=== PATIENT | female | born 1960 | race Caucasian/White ===

== ENCOUNTER 2021-05-27 02:09 | Inpatient (IN) | payer MEDICARE, OTHER ==
[~2021-05-27] VITALS: Ht 167.6 cm; Wt 59.4 kg
[2021-05-27] MEDS ORDERED: ALBU18HF2 IH (02:38)
[2021-05-27] MEDS ORDERED: ASPI81TA31 PO (02:38)
[2021-05-27] MEDS ORDERED: HYDR25TA4 PO (02:38)
[2021-05-27] MEDS ORDERED: VALP250S22 PO (02:38)
[2021-05-27] MEDS ORDERED: METF-867 PO (02:38)
[2021-05-27] MEDS ORDERED: PANT40TA2 PO (02:38)
[2021-05-27] MEDS ORDERED: ACET-2154 PO (02:38)
[2021-05-27] MEDS ORDERED: RISP3TAB5 PO (02:38)
[2021-05-27] MEDS ORDERED: NA P133E RC (02:38)
[2021-05-27] MEDS ORDERED: MAGN400O6 PO (02:38)
[2021-05-27] MEDS ORDERED: BISA10SU61 RC (02:38)
[2021-05-27] MEDS ORDERED: DOCU-141 PO (02:38)
[2021-05-27 02:56] LABS: MAGNESIUM 1.5 mg/dL (1.8-2.4)
[2021-05-27 03:03] LABS: ALANINE AMINOTRANSFERASE 24 U/L (14-59); ALKALINE PHOSPHATASE 111 U/L (50-136); ASPARTATE AMINOTRANSFERASE 11 U/L (15-37); BILIRUBIN,TOTAL 0.2 mg/dL (0.2-1.0); CARBON DIOXIDE 30 mmol/L (21-32); CHLORIDE 97 mmol/L (98-107); CREATININE 0.7 mg/dL (0.6-1.3); GLUCOSE 293 mg/dL (74-106); POTASSIUM 3.8 mmol/L (3.5-5.1); UREA NITROGEN, BLOOD 11 mg/dL (7-18)
[2021-05-27 03:10] LABS: BILIRUBIN,DIRECT < 0.1 mg/dL (0.0-0.2)
[2021-05-27 03:11] LABS: *BILIRUBIN,URIN NEGATIVE (NEGATIVE); *BLOOD, URINE NEGATIVE (NEGATIVE); *CLARITY,URINE CLEAR (CLEAR); *COLOR,URINE STRAW (YELLOW); *KETONES,URINE NEGATIVE (NEGATIVE); *UROBILINOGEN,URINE 0.2 E.U./dl (NORMAL); LEUKOCYTE ESTERASE ,URINE TRACE (NEGATIVE); NITRITE, URINE NEGATIVE (NEGATIVE); PH,URINE 6.5 (5.0-8.0); UGLUCOSE 1+ (NEGATIVE)
[2021-05-27 03:17] LABS: BACTERIA,URINE NONE SEEN /HPF (NONE SEEN); RBC,URINE NONE SEEN /HPF (0-3); SQUAMOUS EPITHELIAL CELL,UR FEW /HPF (NONE SEEN)
[2021-05-27 03:21] LABS: MEAN CORPUSCULAR HEMOGLOBIN 30.4 uug (24.7-32.8); PLATELET COUNT (AUTO) 214 K/uL (179-408)
--- NOTE | 2021-05-27 04:04 | NUR ---
Report given to Loraine at [facility] for admission to the unit. Pt is laying in bed, no acute distress noted.
[2021-05-27] MEDS ORDERED: BLOOD SUGAR DIAGNOSTIC 1 EACH STRIP VI ONE (05:30)
[2021-05-27] MEDS ORDERED: MAGNESIUM HYDROXIDE 30 ML LIQUID UDC PO PRN ×2 (05:30→16:30)
[2021-05-27] MEDS ORDERED: MAG HYDROX/AL HYDROX/SIMETH 30 ML LIQUID UDC PO PRN (05:30)
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
[2021-05-27 06:38] VITALS: BP 123/74
[2021-05-27 07:30] VITALS: BP 123/62
[2021-05-27] MEDS ORDERED: MAGNESIUM CHLORIDE 64 MG TABLET.SA PO SCH (09:00)
--- NOTE | 2021-05-27 09:12 | NUR ---
PRISCILLA Initial Discharge Note Pt currently resides at [facility] located at [address] [place] [address] ([phone]). PRISCILLA contacted [facility] and spoke with Tiffanie with admissions department who stated she will check with director of pupil personnel program whether pt will be accepted back at the facility. PRISCILLA spoke with ERIC Sellers at [facility], who stated facility will take pt back if she is referred back. PRISCILLA will continue to work with pt and MD to ensure a safe and proper discharge plan.
--- NOTE | 2021-05-27 09:13 | NUR ---
Firearms Report Plastics Fitter completed and submitted a DOJ firearms report for 5150 danger to others and grave disability certifications. A copy of report has been placed in patient chart.
--- NOTE | 2021-05-27 09:14 | NUR ---
Treatment Plan Patient refused to sign treatment plan due to disorganized thought process.
--- NOTE | 2021-05-27 09:23 | NUR ---
SW Facility Contact PRISCLILA called [facility] [address] [place] [address] ([phone]) and spoke with Tiffanie with admissions department regarding discharge plan. Tiffanie informed she will check with her director of search engine optimization to confirm whether pt will be accepted back. PRISCILLA also spoke with ERIC Sellers, who provided collateral information (see SW assessment). Verito stated the facility will take the pt back if she is referred back to them.
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
[2021-05-27] MEDS ORDERED: MAGNESIUM OXIDE 400 MG TABLET PO ONE (12:00)
[2021-05-27] MEDS: LORAZEPAM 1 MG TABLET PO PRN (12:22)
[2021-05-27] MEDS ORDERED: METF-442 PO (16:27)
[2021-05-27] MEDS ORDERED: BISACODYL 10 MG SUPP.RECT RC PRN (16:30)
[2021-05-27] MEDS ORDERED: ALBUTEROL SULFATE 8 GM HFA.AER.AD IH PRN (16:30)
[2021-05-27] MEDS ORDERED: FLEET ENEMA 133 ML BOTTLE RC PRN (16:30)
[2021-05-27] MEDS ORDERED: ALBUTEROL SULFATE 2.5 MG/3 ML NEBU NEB PRN (16:30)
[2021-05-27] MEDS: risperiDONE 2 MG TABLET PO SCH ×2 (16:38→21:00)
[2021-05-27] MEDS: METFORMIN HCL 500 MG TABLET PO SCH (17:05)
--- NOTE | 2021-05-27 20:30 | NUR ---
RECEIVED PATIENT IN HER ROOM IN BED SLEEPING BUT EASILY AROUSABLE. SHE IS NOTED A/O X 2 SHE IS EASILY IRRITABLE, SARCASTIC, BELLIGERENT, SHE IS HARD RO REDIRECT. SHE IS NOTED WITH POOR INSIGHT AND JUDGMENT TO THE REASON FOR HER ADMISSION TO [facility]. PATIENT WAS GIVEN PO FLUIDS AND SNACKS. SHE REFUSED V/S. SHE IS UNCOOPERATIVE WITH CARE. SHE IS REASSURED FOR HER SAFETY. SAFETY AND FALL PRECAUTION ARE IN PLACE. WILL CONTINUE TO MONITOR.
[2021-05-27] MEDS: levETIRAcetam 500 MG TABLET PO SCH (21:00)
--- NOTE | 2021-05-27 22:00 | NUR ---
PATIENT REFUSED KEPPRA AND RISPERDAL QHS. SHE WAS INFORMED OF THE IMPORTANCE TO COMPLY WITH HER MEDICATION REGIMENT TO IMPROVED HER MENTAL HEALTH; HOWEVER, SHE REFUSED. WILL CONTINUE TO MONITOR,
[2021-05-28] MEDS: PANTOPRAZOLE SODIUM 40 MG TABLET.DR PO SCH (06:48)
[2021-05-28 07:30] VITALS: BP_SYST 117; BP_SYST 121; BP_DIAS 54; BP_DIAS 73
[2021-05-28] MEDS: risperiDONE 2 MG TABLET PO SCH ×4 (08:00→21:00)
[2021-05-28] MEDS: METFORMIN HCL 500 MG TABLET PO SCH ×2 (08:00→12:05)
[2021-05-28] MEDS: DOCUSATE SODIUM 100 MG CAPSULE PO SCH (09:00)
[2021-05-28] MEDS: levETIRAcetam 500 MG TABLET PO SCH ×2 (09:00→21:00)
[2021-05-28] MEDS: HYDROCHLOROTHIAZIDE 25 MG TABLET PO SCH (09:00)
[2021-05-28] MEDS: ASPIRIN 81 MG TAB.CHEW PO SCH ×2 (09:09→12:05)
[2021-05-28] MEDS ORDERED: DEXTROSE 50% 50 ML DISP.SYRIN IV PRN (12:00)
[2021-05-28] MEDS: ACETAMINOPHEN 325 MG TABLET PO PRN (12:05)
[2021-05-28] MEDS: BLOOD SUGAR DIAGNOSTIC 1 EACH STRIP VI SCH ×3 (12:46→21:03)
[2021-05-28] MEDS: INSULIN REGULAR, HUMAN 300 UNIT/3 ML VIAL SQ PRN ×2 (13:38→17:26)
--- NOTE | 2021-05-28 13:39 | NUR ---
Checked patient's bs before lunch to be 357. Insulin order per scale is 15 unit. Attempted to give patient insulin. Pt yelled that it's too much and she was taking lower doses before. 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 I will order my own insulin!, you don't know anything about medicine!" Pt was explained the sliding scale and importance of taking her insulin. Pt continues to refuse.
[2021-05-28 20:00] VITALS: BP 131/72
--- NOTE | 2021-05-28 21:00 | NUR ---
RECEIVED PATIENT IN HER ROOM SITTING IN A WHEELCHAIR. SHE WAS NOTED A/O X 2. SHE IS NOTED EASILY IRRITABLE, SHE IS HARD TO REDIRECT. MOOD IS IRRITABLE AFFECT IS FLAT. SHE IS LABILE. PATIENT WAS COMPLIANT WITH ACCU CHECK AND INSULIN SLIDING SCALE. SHE WAS 285 AND SHE WAS GIVEN 6 UNIT OF REGULAR INSULIN. SHE CONTINUE REFUSING KEPPRA AND RISPERDAL OHS. WILL CONTINUE TO MONITOR.
[2021-05-28] MEDS: INSULIN REGULAR, HUMAN 300 UNITS/3 ML VIAL SQ PRN (21:02)
--- NOTE | 2021-05-28 22:15 | NUR ---
PATIENT REFUSED KEPPRA AND RISPERDAL QHS. MULTIPLE ATTEMPTS WERE MADE YET INEFFECTIVE, PATIENT IS LABILE, SHE GETS ANGRY EASILY. SHE WAS INFORMED OF THE IMPORTANCE TO COMPLY WITH MEDICATION REGIMENT TO IMPROVED HER CONDITION BUT WERE INEFFECTIVE. WILL CONTINUE TO MONITOR.
[2021-05-29] MEDS: PANTOPRAZOLE SODIUM 40 MG TABLET.DR PO SCH (06:51)
[2021-05-29] MEDS: BLOOD SUGAR DIAGNOSTIC 1 EACH STRIP VI SCH ×4 (06:51→20:44)
--- NOTE | 2021-05-29 07:01 | NUR ---
patient slept for approx 9hrs through the night. she was able to shower. she continue labile, easily irritable. she laughs inappropriately and she is hard to redirect. she refused pantoprazole. will continue to monitor.
[2021-05-29] MEDS: risperiDONE 2 MG TABLET PO SCH ×3 (08:00→20:38)
[2021-05-29] MEDS: METFORMIN HCL 500 MG TABLET PO SCH ×2 (08:00→18:03)
[2021-05-29] MEDS: DOCUSATE SODIUM 100 MG CAPSULE PO SCH (09:00)
[2021-05-29] MEDS: levETIRAcetam 500 MG TABLET PO SCH ×2 (09:00→20:37)
[2021-05-29] MEDS: HYDROCHLOROTHIAZIDE 25 MG TABLET PO SCH (09:00)
[2021-05-29] MEDS: INSULIN REGULAR, HUMAN 300 UNIT/3 ML VIAL SQ PRN ×2 (09:24→17:52)
--- NOTE | 2021-05-29 09:30 | NUR ---
Gps/Correctional Captain- Roaming around with her wheel chair . Claimed she does not take any oral medications from the staff . Speech incoherent , claimed she is an Impress and needed respect. 

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
[2021-05-29] MEDS ORDERED: OLANZAPINE 10 MG VIAL IM ONE (09:45)
[2021-05-29] MEDS ORDERED: LORAZEPAM 2 MG/1 ML VIAL IV ONE (11:00)
--- NOTE | 2021-05-29 14:00 | NUR ---
Gps/Tubing Supervisor. Request for Reise sent to Court. Response received from Court, no availability today, and closed tomorrow. Can request schedule for or , called to Dr Jaramillo and was informed
[2021-05-29 16:00] VITALS: BP 131/64
--- NOTE | 2021-05-29 18:06 | NUR ---
Gps/Panama Hat Hydraulic Press Operator- Calmer this pm, had been following simple directions, remains in her wheel chair, roaming around.Requested Glucerna with meals as requested
[2021-05-29 20:10] VITALS: BP 126/56
[2021-05-29] MEDS: INSULIN REGULAR, HUMAN 300 UNITS/3 ML VIAL SQ PRN (20:47)
[2021-05-30] MEDS: LORAZEPAM 1 MG TABLET PO PRN (03:40)
[2021-05-30] MEDS: PANTOPRAZOLE SODIUM 40 MG TABLET.DR PO SCH (06:20)
[2021-05-30] MEDS: BLOOD SUGAR DIAGNOSTIC 1 EACH STRIP VI SCH ×4 (06:27→22:16)
--- NOTE | 2021-05-30 07:11 | NUR ---
Slept 4.0 hours only, out of bed on her wheelchair, holdings some papers to draw. No agitation noted, cooperative with her medications.
[2021-05-30 07:30] VITALS: BP 144/85
[2021-05-30] MEDS: DOCUSATE SODIUM 100 MG CAPSULE PO SCH (08:30)
[2021-05-30] MEDS: ASPIRIN 81 MG TAB.CHEW PO SCH (08:30)
[2021-05-30] MEDS: risperiDONE 2 MG TABLET PO SCH ×3 (08:30→21:59)
[2021-05-30] MEDS: METFORMIN HCL 500 MG TABLET PO SCH ×2 (08:30→16:43)
[2021-05-30] MEDS: HYDROCHLOROTHIAZIDE 25 MG TABLET PO SCH (08:31)
[2021-05-30] MEDS: INSULIN REGULAR, HUMAN 300 UNIT/3 ML VIAL SQ PRN ×3 (08:42→17:09)
[2021-05-30] MEDS: levETIRAcetam 500 MG TABLET PO SCH ×2 (08:43→21:59)
[2021-05-30] MEDS: glipiZIDE 10 MG TABLET PO SCH (16:41)
[2021-05-30 17:20] VITALS: BP 126/62
--- NOTE | 2021-05-30 17:55 | NUR ---
Gps/Paraeducator- Marietta self around the unit, continue to make simple needs known to the staff, had been redirectable. No Yelling spells noted. safety reviewed ,emphasized Had been compliant with routine am meds. Requesting to take multivitamin , informed will notify her MD. in the morning on her next visit., she thinks she is loosing some weights.
[2021-05-30 20:03] VITALS: BP 136/66
--- NOTE | 2021-05-31 05:26 | NUR ---
Received to care, lying in bed. Able to transfer self from bed, to wheel chair, and back. 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 Demanded vitamin supplements, and wanted staff to call the doctor late at night to request this. She was told that the morning nurse would be told of her request, and ask the doctor, when making morning rounds. She eventually went to sleep, and remains asleep. No distress noted.
[2021-05-31] MEDS: PANTOPRAZOLE SODIUM 40 MG TABLET.DR PO SCH (06:58)
[2021-05-31] MEDS: BLOOD SUGAR DIAGNOSTIC 1 EACH STRIP VI SCH ×4 (06:59→21:59)
[2021-05-31 07:51] VITALS: BP 128/64
[2021-05-31] MEDS: risperiDONE 2 MG TABLET PO SCH ×3 (08:00→21:00)
[2021-05-31] MEDS: glipiZIDE 10 MG TABLET PO SCH ×2 (08:51→16:30)
[2021-05-31] MEDS: DOCUSATE SODIUM 100 MG CAPSULE PO SCH (08:51)
[2021-05-31] MEDS: ASPIRIN 81 MG TAB.CHEW PO SCH (08:51)
[2021-05-31] MEDS: HYDROCHLOROTHIAZIDE 25 MG TABLET PO SCH (08:52)
[2021-05-31] MEDS: METFORMIN HCL 500 MG TABLET PO SCH ×2 (08:52→17:11)
[2021-05-31] MEDS: LORAZEPAM 1 MG TABLET PO PRN ×2 (08:52→16:30)
[2021-05-31] MEDS: levETIRAcetam 500 MG TABLET PO SCH ×2 (08:54→21:00)
[2021-05-31] MEDS: INSULIN REGULAR, HUMAN 300 UNIT/3 ML VIAL SQ PRN ×2 (08:54→16:32)
--- NOTE | 2021-05-31 14:53 | NUR ---
GPS: Nursing Notes: Non-Compliance With Medications: Patient is awake and responding to her name, labile, unpredictable behavior, loud and pressured speech, resistant with nursing care, refusing her Risperdal medication and Keppra medication, stated "I am a doctor... I do not need them..", gets easily irritable when redirected, explosive behavior, verbal abusive toward staff, episodes of shouting to her roommate, poor anger management, unable to formulate a viable plan for self care, continue with treatment plan.
[2021-05-31 16:22] VITALS: BP 157/86
[2021-05-31 20:00] VITALS: BP 117/50
--- NOTE | 2021-06-01 05:23 | NUR ---
Received lying in bed, answering questions, selectively. 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 She slept well throughout the night, and remains asleep. No distress, noted.
[2021-06-01] MEDS: PANTOPRAZOLE SODIUM 40 MG TABLET.DR PO SCH (07:10)
[2021-06-01] MEDS: BLOOD SUGAR DIAGNOSTIC 1 EACH STRIP VI SCH ×4 (07:10→20:17)
[2021-06-01 07:41] VITALS: BP 128/69
[2021-06-01] MEDS: risperiDONE 2 MG TABLET PO SCH ×3 (08:00→20:17)
[2021-06-01] MEDS: LORAZEPAM 1 MG TABLET PO PRN (08:49)
[2021-06-01] MEDS: glipiZIDE 10 MG TABLET PO SCH ×2 (08:49→16:43)
[2021-06-01] MEDS: HYDROCHLOROTHIAZIDE 25 MG TABLET PO SCH (08:49)
[2021-06-01] MEDS: ASPIRIN 81 MG TAB.CHEW PO SCH (08:49)
[2021-06-01] MEDS: METFORMIN HCL 500 MG TABLET PO SCH ×2 (08:49→17:05)
[2021-06-01] MEDS: DOCUSATE SODIUM 100 MG CAPSULE PO SCH (08:49)
[2021-06-01] MEDS: levETIRAcetam 500 MG TABLET PO SCH ×2 (08:50→20:17)
--- NOTE | 2021-06-01 12:10 | NUR ---
GPS: Nursing Notes: Non-Compliance With Medications: Patient is awake and responding to her name, poor impulse control, impaired judgment, refusing her Risperdal and Keppra, stating "I am a doctor.... I know better..", explained the pros and cons of her medications, but continue to refuse her medications, written material regarding Risperdal and Keppra given to the patient, gets easily irritable when redirected, loud and pressured speech, poor anger management, unkempt appearance, unable to formulate a viable plan for self care, disorganized, continue to monitor for safety, continue with treatment plan.
[2021-06-01 15:56] VITALS: BP 148/77
[2021-06-01] MEDS: INSULIN REGULAR, HUMAN 300 UNIT/3 ML VIAL SQ PRN (16:48)
[2021-06-01] MEDS: TEMAZEPAM 7.5 MG CAPSULE PO PRN (20:21)
[2021-06-01 20:55] VITALS: BP 146/74
[2021-06-02] MEDS: glipiZIDE 10 MG TABLET PO SCH ×2 (06:39→16:52)
[2021-06-02] MEDS: PANTOPRAZOLE SODIUM 40 MG TABLET.DR PO SCH (06:39)
[2021-06-02] MEDS: BLOOD SUGAR DIAGNOSTIC 1 EACH STRIP VI SCH ×4 (06:40→20:37)
[2021-06-02 07:39] VITALS: BP 137/84
[2021-06-02] MEDS: risperiDONE 2 MG TABLET PO SCH ×3 (08:00→20:37)
[2021-06-02] MEDS: METFORMIN HCL 500 MG TABLET PO SCH ×2 (08:30→17:04)
[2021-06-02] MEDS: LORAZEPAM 1 MG TABLET PO PRN (08:31)
[2021-06-02] MEDS: HYDROCHLOROTHIAZIDE 25 MG TABLET PO SCH (08:31)
[2021-06-02] MEDS: ASPIRIN 81 MG TAB.CHEW PO SCH (08:31)
[2021-06-02] MEDS: DOCUSATE SODIUM 100 MG CAPSULE PO SCH (08:33)
[2021-06-02] MEDS: levETIRAcetam 500 MG TABLET PO SCH ×2 (08:33→20:37)
--- NOTE | 2021-06-02 09:30 | NUR ---
GPS: Nursing Notes: Thought Disorder: Patient is awake and responding to her name, poor anger management, poor impulse control, gets easily irritable when redirected, refusing her medications, impaired judgment, demanding for international phone calls, "I want to call [employer] [place].. Yung is my ..", redirected and reoriented to reality during shift, but continue to refuse her medications, continue on trying to call [employer] [place], unable to formulate a viable plan for self care, unkempt appearance, continue with treatment plan.
[2021-06-02 16:11] VITALS: BP 140/71
[2021-06-02] MEDS: INSULIN REGULAR, HUMAN 300 UNIT/3 ML VIAL SQ PRN (16:53)
[2021-06-02 20:11] VITALS: BP 132/74
[2021-06-02] MEDS: ACETAMINOPHEN 325 MG TABLET PO PRN (20:31)
[2021-06-02] MEDS: INSULIN REGULAR, HUMAN 300 UNITS/3 ML VIAL SQ PRN (20:38)
[2021-06-03] MEDS: PANTOPRAZOLE SODIUM 40 MG TABLET.DR PO SCH (06:27)
[2021-06-03] MEDS: BLOOD SUGAR DIAGNOSTIC 1 EACH STRIP VI SCH ×4 (06:39→21:00)
--- NOTE | 2021-06-03 06:57 | NUR ---
remain uncooperative. screaming at room mate. refused insulin at hs. compliant with meds this morning. slept 6.30 hrs through the night.
[2021-06-03 07:30] VITALS: BP_SYST 117; BP_SYST 17; BP_DIAS 78
[2021-06-03] MEDS: glipiZIDE 10 MG TABLET PO SCH ×2 (07:30→16:30)
[2021-06-03] MEDS: risperiDONE 2 MG TABLET PO SCH ×3 (08:00→21:00)
[2021-06-03] MEDS: levETIRAcetam 500 MG TABLET PO SCH ×2 (09:00→21:00)
[2021-06-03] MEDS: DOCUSATE SODIUM 100 MG CAPSULE PO SCH (09:00)
[2021-06-03] MEDS: METFORMIN HCL 500 MG TABLET PO SCH ×2 (09:38→17:05)
[2021-06-03] MEDS: LORAZEPAM 1 MG TABLET PO PRN (09:38)
[2021-06-03] MEDS: ASPIRIN 81 MG TAB.CHEW PO SCH (09:38)
[2021-06-03] MEDS: HYDROCHLOROTHIAZIDE 25 MG TABLET PO SCH (09:39)
[2021-06-03] MEDS: INSULIN REGULAR, HUMAN 300 UNIT/3 ML VIAL SQ PRN (09:41)
--- NOTE | 2021-06-03 11:48 | NUR ---
COURT NOTIFICATION: Shelly bella faxed to court. This hand sign writer called court to confirm they received the fax. Confirmed by Yasmeen at the court.
[2021-06-03 16:00] VITALS: BP 124/72
--- NOTE | 2021-06-03 17:14 | NUR ---
PROBABLE CAUSE HEARING: Patient's probable cause hearing was held today. 5250 hold upheld for DTO/GD.
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
[2021-06-03 20:10] VITALS: BP 116/70
[2021-06-04] MEDS: PANTOPRAZOLE SODIUM 40 MG TABLET.DR PO SCH (07:00)
[2021-06-04 07:30] VITALS: BP 112/65
[2021-06-04] MEDS: glipiZIDE 10 MG TABLET PO SCH ×2 (07:30→16:49)
[2021-06-04] MEDS: BLOOD SUGAR DIAGNOSTIC 1 EACH STRIP VI SCH ×5 (07:30→20:52)
[2021-06-04] MEDS: METFORMIN HCL 500 MG TABLET PO SCH ×2 (08:00→16:50)
[2021-06-04] MEDS: risperiDONE 2 MG TABLET PO SCH ×4 (08:00→21:00)
[2021-06-04] MEDS: HYDROCHLOROTHIAZIDE 25 MG TABLET PO SCH (08:41)
[2021-06-04] MEDS: levETIRAcetam 500 MG TABLET PO SCH ×3 (08:41→21:00)
[2021-06-04] MEDS: ASPIRIN 81 MG TAB.CHEW PO SCH (08:42)
[2021-06-04] MEDS: DOCUSATE SODIUM 100 MG CAPSULE PO SCH (08:42)
--- NOTE | 2021-06-04 10:27 | NUR ---
GPS; PT SEEN AND RECEIVED ON WHEELCHAIR, ATE BREAKFAST, NON-COMPLIANT WITH MEDICATIONS THIS MORNING. PT REFUSED TAKING IT AFTER EXPLAINING RISK AND BENIFITS. PT WITH MIKEL HEARING TODAY AND PER PT ADVOCATE, PT IS NOT GOING TO ATTEND. PT EASILY GETS AGITATED.
[2021-06-04] MEDS: INSULIN REGULAR, HUMAN 300 UNIT/3 ML VIAL SQ PRN ×2 (12:11→16:56)
[2021-06-04] MEDS: OLANZAPINE 10 MG VIAL IM PRN ×2 (12:17→21:16)
--- NOTE | 2021-06-04 12:33 | NUR ---
GPS: PT ADMINISTERED ZYPREXA IM AFTER PT REFUSED TAKING THE RISPERDAL. EXPLAINED TO PT AND WAS TOLERATED WELL. ADMINISTERED ON RIGHT DELTOID. PT AGITATED STATING " YOU ARE GIVING ME POISON AND I AM ALLERGIC TO RISPERDAL AND ZYPREXA. I GET A BAD REACTION TO IT". ABLE TO GIVE HUMULIN R AND ACCUCHECK DONE BEFORE GIVING ZYPREXA.
[2021-06-04 16:00] VITALS: BP 127/74
[2021-06-04] MEDS: ACETAMINOPHEN 325 MG TABLET PO PRN ×2 (16:49→22:16)
[2021-06-04] MEDS: LORAZEPAM 1 MG TABLET PO PRN (17:05)
[2021-06-04 20:15] VITALS: BP 116/66
[2021-06-05] MEDS: BLOOD SUGAR DIAGNOSTIC 1 EACH STRIP VI SCH ×4 (06:46→21:00)
[2021-06-05] MEDS: PANTOPRAZOLE SODIUM 40 MG TABLET.DR PO SCH (06:46)
[2021-06-05 07:30] VITALS: BP 120/65
[2021-06-05] MEDS: glipiZIDE 10 MG TABLET PO SCH ×2 (07:30→18:28)
[2021-06-05] MEDS: ASPIRIN 81 MG TAB.CHEW PO SCH (08:30)
[2021-06-05] MEDS: METFORMIN HCL 500 MG TABLET PO SCH ×2 (08:30→18:26)
[2021-06-05] MEDS: levETIRAcetam 500 MG TABLET PO SCH ×2 (08:31→21:00)
[2021-06-05] MEDS: DOCUSATE SODIUM 100 MG CAPSULE PO SCH (08:31)
[2021-06-05] MEDS: HYDROCHLOROTHIAZIDE 25 MG TABLET PO SCH (08:32)
[2021-06-05] MEDS ORDERED: PALIPERIDONE PALMITATE 234 MG/1.5 ML SYRINGE IM ONE (09:00)
[2021-06-05] MEDS ORDERED: MISCELLANEOUS MED XX PRN (09:00)
--- NOTE | 2021-06-05 11:15 | NUR ---
GPS: PT ALERT AND VERBALLY RESPONSIVE. EASILY GETS AGITATED. SCREAMS ALL OVER THE PLACE. ADMINISTERED INVEGA SUSTENA 1.5ML IM ON RIGHT DELTOID. TOLERATED WELL. PT SCREAMING AND COMBATIVE AFTER ADMINISTRATION. TOLERATED WELL. PT LIKES WO WHEEL ALONG THE HALLWAY.
[2021-06-05] MEDS: INSULIN REGULAR, HUMAN 300 UNIT/3 ML VIAL SQ PRN (14:19)
[2021-06-05 16:00] VITALS: BP 117/67
[2021-06-05 20:00] VITALS: BP 136/61
[2021-06-06] MEDS: TEMAZEPAM 7.5 MG CAPSULE PO PRN (00:33)
[2021-06-06] MEDS: LORAZEPAM 1 MG TABLET PO PRN ×2 (00:33→20:42)
[2021-06-06] MEDS: PANTOPRAZOLE SODIUM 40 MG TABLET.DR PO SCH (06:29)
[2021-06-06 07:30] VITALS: BP 127/69
[2021-06-06] MEDS: BLOOD SUGAR DIAGNOSTIC 1 EACH STRIP VI SCH ×4 (07:30→19:58)
[2021-06-06] MEDS ORDERED: TEMAZEPAM 7.5 MG CAPSULE PO PRN (08:00)
[2021-06-06] MEDS ORDERED: TEMAZEPAM 15 MG CAPSULE PO PRN (08:15)
--- NOTE | 2021-06-06 08:47 | NUR ---
GPS: RECEIVED TELEPHONE ORDER FROM DR TRAVIS GEORGE 0.5MG PO QHS FOR PT. PT MADE AWARE.
[2021-06-06] MEDS: DOCUSATE SODIUM 100 MG CAPSULE PO SCH (08:54)
[2021-06-06] MEDS: levETIRAcetam 500 MG TABLET PO SCH ×2 (08:54→20:41)
[2021-06-06] MEDS: ASPIRIN 81 MG TAB.CHEW PO SCH (08:54)
[2021-06-06] MEDS: glipiZIDE 10 MG TABLET PO SCH ×2 (08:55→17:23)
[2021-06-06] MEDS: HYDROCHLOROTHIAZIDE 25 MG TABLET PO SCH (08:56)
[2021-06-06] MEDS: METFORMIN HCL 500 MG TABLET PO SCH ×2 (09:29→17:23)
[2021-06-06 09:30] LABS: HEMATOCRIT 43.8 % (31.2-41.9); MEAN CORPUSCULAR HEMOGLOBIN 30.2 uug (24.7-32.8); MEAN CORPUSCULAR VOLUME 88.9 fL (75.5-95.3); PLATELET COUNT (AUTO) 265 K/uL (179-408)
[2021-06-06] MEDS: INSULIN REGULAR, HUMAN 300 UNIT/3 ML VIAL SQ PRN ×3 (09:32→17:25)
[2021-06-06 09:48] LABS: CREATININE 0.6 mg/dL (0.6-1.3); MAGNESIUM 1.6 mg/dL (1.8-2.4); PHOSPHOROUS 4.4 mg/dL (2.5-4.9); POTASSIUM 4.1 mmol/L (3.5-5.1)
--- NOTE | 2021-06-06 10:18 | NUR ---
GPS: PT RECEIVED TODAY ON BED, DENIES ANY PAIN OR DISCOMFORT. PT SEEN WHEELING ALONG THE HALLWAY. NO AGITATION NOTED AT THIS TIME. PT COMPLIANT WITH MEDS AND ACCUCHECK DONE AND TOLERATED WELL BY PT.
[2021-06-06 17:05] VITALS: BP 122/75
--- NOTE | 2021-06-06 18:00 | NUR ---
GPS: PT COOPERATIVE WITH CARE AND COMPLIANT WITH MEDS AT THIS TIME. GIVEN 3 UNITS HUMULIN R AFTER ACCUCHECK OF 199MG/DL. PT TOLERATED WELL THE SQ INJ. DENIES ANY PAIN OR DISCOMFORT. PT ABLE TO UNDERSTAND AND REDIRECTABLE.
[2021-06-06] MEDS: INSULIN REGULAR, HUMAN 300 UNITS/3 ML VIAL SQ PRN (19:59)
[2021-06-06 20:00] VITALS: BP 116/67
[2021-06-06] MEDS: risperiDONE 0.5 MG TABLET PO SCH (20:41)
--- NOTE | 2021-06-07 03:41 | NUR ---
Received the patient in bed with the covers over her head. Resistant to having her blood sugar checked , and refused Insulin at that time. Then the patient proceeded to yell and was verbally abusive. This patient is delusional, paranoid and has poor impulse control. This technical proposal writer had difficulty having any meaningful conversation or reorienting the patient. Staff is monitoring the patient for safety and further behavior escalation. On and off with medication compliance.
[2021-06-07] MEDS: glipiZIDE 10 MG TABLET PO SCH ×2 (06:00→16:03)
[2021-06-07] MEDS: PANTOPRAZOLE SODIUM 40 MG TABLET.DR PO SCH (06:00)
[2021-06-07] MEDS: BLOOD SUGAR DIAGNOSTIC 1 EACH STRIP VI SCH ×4 (06:08→20:28)
[2021-06-07 07:30] VITALS: BP 121/63
[2021-06-07] MEDS: INSULIN REGULAR, HUMAN 300 UNIT/3 ML VIAL SQ PRN ×2 (07:50→16:43)
[2021-06-07] MEDS: METFORMIN HCL 500 MG TABLET PO SCH ×2 (08:49→18:13)
[2021-06-07] MEDS: DOCUSATE SODIUM 100 MG CAPSULE PO SCH (08:53)
[2021-06-07] MEDS: ASPIRIN 81 MG TAB.CHEW PO SCH (08:53)
[2021-06-07] MEDS: levETIRAcetam 500 MG TABLET PO SCH ×2 (08:54→20:28)
[2021-06-07] MEDS: HYDROCHLOROTHIAZIDE 25 MG TABLET PO SCH (08:54)
[2021-06-07 16:00] VITALS: BP 125/68
[2021-06-07 20:00] VITALS: BP 121/54
[2021-06-07] MEDS: risperiDONE 0.5 MG TABLET PO SCH (20:28)
[2021-06-07] MEDS: INSULIN REGULAR, HUMAN 300 UNITS/3 ML VIAL SQ PRN (20:52)
[2021-06-08] MEDS: glipiZIDE 10 MG TABLET PO SCH ×2 (06:28→16:32)
[2021-06-08] MEDS: BLOOD SUGAR DIAGNOSTIC 1 EACH STRIP VI SCH ×4 (06:28→20:45)
[2021-06-08] MEDS: PANTOPRAZOLE SODIUM 40 MG TABLET.DR PO SCH (06:29)
[2021-06-08 07:47] VITALS: BP 101/63
[2021-06-08] MEDS: DOCUSATE SODIUM 100 MG CAPSULE PO SCH (08:41)
[2021-06-08] MEDS: METFORMIN HCL 500 MG TABLET PO SCH ×2 (08:41→17:09)
[2021-06-08] MEDS: ASPIRIN 81 MG TAB.CHEW PO SCH (08:41)
[2021-06-08] MEDS: levETIRAcetam 500 MG TABLET PO SCH ×2 (08:41→20:52)
[2021-06-08] MEDS: HYDROCHLOROTHIAZIDE 25 MG TABLET PO SCH (08:42)
[2021-06-08] MEDS: INSULIN REGULAR, HUMAN 300 UNIT/3 ML VIAL SQ PRN ×2 (08:54→12:30)
[2021-06-08 15:51] VITALS: BP 130/67
[2021-06-08 20:16] VITALS: BP 124/62
[2021-06-08] MEDS: INSULIN REGULAR, HUMAN 300 UNITS/3 ML VIAL SQ PRN (20:51)
[2021-06-08] MEDS: risperiDONE 0.5 MG TABLET PO SCH ×2 (20:52→22:14)
[2021-06-09] MEDS: glipiZIDE 10 MG TABLET PO SCH ×2 (06:36→17:31)
[2021-06-09] MEDS: PANTOPRAZOLE SODIUM 40 MG TABLET.DR PO SCH (06:36)
[2021-06-09] MEDS: BLOOD SUGAR DIAGNOSTIC 1 EACH STRIP VI SCH ×4 (06:37→20:08)
[2021-06-09 07:46] VITALS: BP 116/65
[2021-06-09] MEDS: HYDROCHLOROTHIAZIDE 25 MG TABLET PO SCH (08:50)
[2021-06-09] MEDS: LORAZEPAM 1 MG TABLET PO PRN (08:50)
[2021-06-09] MEDS: METFORMIN HCL 500 MG TABLET PO SCH ×2 (08:50→17:31)
[2021-06-09] MEDS: ASPIRIN 81 MG TAB.CHEW PO SCH (08:50)
[2021-06-09] MEDS: DOCUSATE SODIUM 100 MG CAPSULE PO SCH (08:52)
[2021-06-09] MEDS: levETIRAcetam 500 MG TABLET PO SCH ×2 (08:52→20:08)
[2021-06-09] MEDS: INSULIN REGULAR, HUMAN 300 UNIT/3 ML VIAL SQ PRN (08:54)
[2021-06-09] MEDS: risperiDONE 0.5 MG TABLET PO SCH ×2 (12:47→17:00)
[2021-06-09 15:46] VITALS: BP 108/72
[2021-06-09 20:00] VITALS: BP 112/66
[2021-06-09] MEDS: OLANZAPINE 10 MG VIAL IM PRN (20:07)
[2021-06-09] MEDS: risperiDONE 1 MG TABLET PO SCH (20:08)
--- NOTE | 2021-06-10 06:14 | NUR ---
GPS:Patient has poor anger management, impaired judgment, poor impulse control, overly disruptive by shouting, verbal abusive toward staff, threatening staff, refusing her medications, stated "I am a doctor. I know better. grandiose, I am a berry. unkempt appearance, refused Risperdal po and Zyprexa 5 mg im given. slept 5 hrs through the night. continue with treatment plan.
[2021-06-10] MEDS: BLOOD SUGAR DIAGNOSTIC 1 EACH STRIP VI SCH ×4 (06:38→21:00)
[2021-06-10] MEDS: PANTOPRAZOLE SODIUM 40 MG TABLET.DR PO SCH (06:39)
[2021-06-10 08:30] VITALS: BP 117/79
[2021-06-10] MEDS: levETIRAcetam 500 MG TABLET PO SCH ×2 (09:00→21:00)
[2021-06-10] MEDS: risperiDONE 1 MG TABLET PO SCH ×2 (09:00→21:00)
[2021-06-10] MEDS: DOCUSATE SODIUM 100 MG CAPSULE PO SCH (09:00)
[2021-06-10] MEDS: HYDROCHLOROTHIAZIDE 25 MG TABLET PO SCH (09:00)
[2021-06-10] MEDS: ASPIRIN 81 MG TAB.CHEW PO SCH (09:01)
[2021-06-10] MEDS: METFORMIN HCL 500 MG TABLET PO SCH ×2 (09:01→17:12)
[2021-06-10] MEDS: glipiZIDE 10 MG TABLET PO SCH ×2 (09:02→16:38)
[2021-06-10] MEDS: INSULIN REGULAR, HUMAN 300 UNIT/3 ML VIAL SQ PRN (09:06)
[2021-06-10] MEDS: OLANZAPINE 10 MG VIAL IM PRN ×2 (09:33→20:47)
[2021-06-10 20:03] VITALS: BP 112/74
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
[2021-06-11] MEDS: PANTOPRAZOLE SODIUM 40 MG TABLET.DR PO SCH (06:03)
[2021-06-11] MEDS: glipiZIDE 10 MG TABLET PO SCH ×2 (06:04→17:08)
[2021-06-11] MEDS: BLOOD SUGAR DIAGNOSTIC 1 EACH STRIP VI SCH ×4 (06:14→21:00)
[2021-06-11 07:30] VITALS: BP 131/70
[2021-06-11] MEDS: ASPIRIN 81 MG TAB.CHEW PO SCH (09:00)
[2021-06-11] MEDS: DOCUSATE SODIUM 100 MG CAPSULE PO SCH (09:00)
[2021-06-11] MEDS: HYDROCHLOROTHIAZIDE 25 MG TABLET PO SCH (09:00)
[2021-06-11] MEDS: risperiDONE 1 MG TABLET PO SCH ×3 (09:00→21:00)
[2021-06-11] MEDS: levETIRAcetam 500 MG TABLET PO SCH ×3 (09:00→21:00)
[2021-06-11] MEDS: METFORMIN HCL 500 MG TABLET PO SCH ×2 (09:19→17:07)
[2021-06-11] MEDS: INSULIN REGULAR, HUMAN 300 UNIT/3 ML VIAL SQ PRN ×2 (09:26→13:15)
[2021-06-11] MEDS: OLANZAPINE 10 MG VIAL IM PRN ×2 (09:39→22:02)
[2021-06-11 16:00] VITALS: BP 130/65
[2021-06-11] MEDS: CEphaleXIN 500 MG CAPSULE PO SCH (17:00)
--- NOTE | 2021-06-11 18:26 | NUR ---
GPS: PT REFUSED RISPENDONE THIS AM, ADMINISTERED ZYPREXA 5MG IM ON LEFT DELTOID, TOLERATED WELL BY PT. PT ALSO REFUSED KEFLEX ATB AT 1700. PER PT, HE DOES NOT KNOW SHE HAVE INFECTION AND THERE WAS NO TEST DONE SO WHY TAKE THE ATB MEDICATION.
--- NOTE | 2021-06-11 21:13 | NUR ---
Pharmacy Note: Patient's reise order states in the indication note to give zyprexa 5mg if patient refuses Risperdal 2 mg Q12 hours. Please be advised the order is Risperdal 1 mg Q12 hours. Patient refused HS medication, through the pills at staff and water in staff's face and made the following statement, "Now clean it up, mop the floor, and leave me alone you...". IM to be administered as ordered, will continue to monitor for adverse reactions, psychiatrist aware of the order discrepancy, contacted her to verify @ 3136 hours.
[2021-06-12 07:30] VITALS: BP 119/61
[2021-06-12] MEDS: BLOOD SUGAR DIAGNOSTIC 1 EACH STRIP VI SCH ×4 (07:30→21:00)
[2021-06-12] MEDS: DOCUSATE SODIUM 100 MG CAPSULE PO SCH (08:51)
[2021-06-12] MEDS: METFORMIN HCL 500 MG TABLET PO SCH ×2 (08:51→18:00)
[2021-06-12] MEDS: CEphaleXIN 500 MG CAPSULE PO SCH ×2 (08:52→17:00)
[2021-06-12] MEDS: levETIRAcetam 500 MG TABLET PO SCH ×2 (08:52→21:00)
[2021-06-12] MEDS: ASPIRIN 81 MG TAB.CHEW PO SCH (08:53)
[2021-06-12] MEDS: HYDROCHLOROTHIAZIDE 25 MG TABLET PO SCH (08:54)
[2021-06-12] MEDS: glipiZIDE 10 MG TABLET PO SCH ×2 (09:11→16:30)
[2021-06-12] MEDS: PANTOPRAZOLE SODIUM 40 MG TABLET.DR PO SCH (09:11)
[2021-06-12] MEDS: INSULIN REGULAR, HUMAN 300 UNIT/3 ML VIAL SQ PRN (09:15)
--- NOTE | 2021-06-12 09:25 | NUR ---
Pt refused EKG. LAUNDRY MARKER SUPERVISOR Amanda and MANAGEMENT SME Jose at bedside to witness.
--- NOTE | 2021-06-12 11:00 | NUR ---
GPS: RECEIVED PT CALM AND ON WHEELCHAIR WHEELING AROUND THE HALLWAY. DENIES ANY PAIN OR DISCOMFORT. PT ACCEPTED THE EKG TEST AFTER EXPLAINING THE PROCEDURFE THAT IT'S NOT AN INVASIVE ONE. ORDERED EKG TEST BUT PT BECAME AGITATED AND REFUSED IT. INFORMED DR ROBLES. AN ORDER FOR INVEGA SUSTENA 156MG 1 ML IM WILL BE GIVEN. PT WILL BE DISCHARGE TOMORROW.
[2021-06-12 12:10] LABS: *BILIRUBIN,URIN NEGATIVE (NEGATIVE); *CLARITY,URINE CLEAR (CLEAR); *COLOR,URINE YELLOW (YELLOW); *KETONES,URINE NEGATIVE (NEGATIVE); *UROBILINOGEN,URINE 0.2 E.U./dl (NORMAL); LEUKOCYTE ESTERASE ,URINE NEGATIVE (NEGATIVE); NITRITE, URINE NEGATIVE (NEGATIVE); UGLUCOSE 3+ (NEGATIVE)
[2021-06-12 12:18] LABS: *BLOOD, URINE TRACE (NEGATIVE)
[2021-06-12] MEDS ORDERED: INVEGA 156 MG IM ONE (12:45)
[2021-06-12] MEDS ORDERED: MISCELLANEOUS MED XX PRN (13:00)
[2021-06-12] MEDS ORDERED: PALIPERIDONE PALMITATE 234 MG/1.5 ML SYRINGE IM ONE (13:00)
--- NOTE | 2021-06-12 14:11 | NUR ---
GPS: PT SEEN TODAY, ADMINISTERED INVEGA SUSTENA 156MG 1 ML IM ON RIGHT DELTOID AND TOLERATED WELL. PT DENIES PAIN OR DISCOMFORT ON SITE. WILL MONITOR PT FOR ANY REACTION. MADE AWARE.
--- NOTE | 2021-06-12 15:55 | NUR ---
GPS: PT NOTED AN EPISODE OF VOMITING WITH CONSISTENCY. PT DENIES ANY DIZZINESS OR PAIN OR DISCOMFORT. OFFERED ICE CHIPS AND ELEVATED HEAD OF BED. NO SHORTNESS OF BREATH NOTED. VITAL SIGNS CHECKED BP 137/68 T 98.0 HR 113 R 18 O2SAT 96% RA. DENIES ANY PAIN OR DISCOMFORT. PT OF NOW ASLEEP AND CALM. MADE AWARE. WILL MONITOR PT.
[2021-06-12 16:46] VITALS: BP 137/68
[2021-06-12 17:42] LABS: WBC,URINE 0-3 /HPF (0-3)
[2021-06-12 17:43] LABS: BACTERIA,URINE NONE SEEN /HPF (NONE SEEN); SQUAMOUS EPITHELIAL CELL,UR FEW /HPF (NONE SEEN)
--- NOTE | 2021-06-12 19:00 | NUR ---
GPS: PT ON BED, CALM AND ASLEEP. PT REFUSED VITAL SIGNS ASSESSMENT THIS TIME. PT HAVE 3 EPISODES OF VOMITING NOTED, WITH FOOD CONSISTENCY. PT DENIES DIZZINESS. PT REFUSED 1700 MEDICATIONS. OFFERED ICE CHIPS, AND CRACKERS. ENCOURAGED FLUID INTAKE. CALLED [facility] FOR REPORT TO [address]. WAITING FOR CALL BACK. DR ROBLES MADE AWARE. WILL MONITOR PT.
--- NOTE | 2021-06-12 19:21 | NUR ---
GPS: COVID TEST DONE AND PT TOLERATED WELL. EXPLAINED TO PT SHE NEEDS IT BEFORE DISCHARGE. PT AGREED.
[2021-06-12 20:00] VITALS: BP 98/56
[2021-06-12] MEDS ORDERED: ONDANSETRON ODT 4 MG TAB.RAPDIS SL PRN (21:00)
--- NOTE | 2021-06-13 03:54 | NUR ---
GPS/NSG Patient refused HS medication. PRN for sleeep offered however refused and emesis times three was addressed by obtaining a prn for nausea vomiting however patient also refused it. Will continue to monitor for patient well being and comfort.
[2021-06-13] MEDS: PANTOPRAZOLE SODIUM 40 MG TABLET.DR PO SCH (06:59)
[2021-06-13] MEDS: BLOOD SUGAR DIAGNOSTIC 1 EACH STRIP VI SCH ×2 (06:59→12:06)
[2021-06-13 07:30] VITALS: BP 119/51
[2021-06-13] MEDS: CEphaleXIN 500 MG CAPSULE PO SCH (08:28)
[2021-06-13] MEDS: DOCUSATE SODIUM 100 MG CAPSULE PO SCH (08:28)
[2021-06-13] MEDS: ASPIRIN 81 MG TAB.CHEW PO SCH (08:28)
[2021-06-13] MEDS: glipiZIDE 10 MG TABLET PO SCH (08:28)
[2021-06-13 08:29] VITALS: BP 119/51
[2021-06-13] MEDS: HYDROCHLOROTHIAZIDE 25 MG TABLET PO SCH (08:29)
--- NOTE | 2021-06-13 08:59 | NUR ---
PRISCILLA Discharge Note: Pt will be discharged to [facility] via [address] [place] [address] ([phone]) Ambulance transportation at 11AM. PRISCILLA spoke with marketing project manager of Admissions, Lesia ([phone]) who states they are ready to accept the patient today. Pt is aware and agreeable with discharge plans. Pt is alert and oriented x1, is unable to plan for self-care at this time; however, is willing to accept care at SNF. Pt denies any suicidal or homicidal ideation. Pt will follow-up at the facility with Psychiatrist, Dr. Jaramillo and Job Forwarder, Dr. Quintero. Pt presents with calm mood and congruent affect.
[2021-06-13] MEDS: METFORMIN HCL 500 MG TABLET PO SCH (09:19)
[2021-06-13] MEDS: levETIRAcetam 500 MG TABLET PO SCH (09:20)
--- NOTE | 2021-06-13 10:00 | NUR ---
GPS: PT RECEIVED ON BED, PT CALM AND RELAX. ATE BREAKFAST. DENIES PAIN OR DISCOMFORT. PT COMPLIANT WITH CARE AND MEDS. PT WILL BE DISCHARGE TO [facility] VIA AMBULANCE AT 1400. ENCOURAGE TO INCREASE FOOD AND FLUID INTAKE UNLESS CONTRAINDICATED. PT SEEN BY PSYCHIATRIST DR ROBLES AND PT WAS CALM AND RESPONDED WELL.
[2021-06-13] MEDS: INSULIN REGULAR, HUMAN 300 UNIT/3 ML VIAL SQ PRN (13:17)
--- NOTE | 2021-06-13 14:39 | NUR ---
GPS: PT DISCHARGE FROM FACILITY GOING TO [facility] VIA AMBULANCE. ALL BELONGINGS REPOSSESSED BY PT AND SIGNED AND ACCOUNTED. PT DENIES ANY PAIN OR DISCOMFORT. PT ALERT AND VERBALLY RESPONSIVE AND WITHIN NORMAL LIMITS OF VITAL SIGNS. COMPLIANT WITH MEDS AND COOPERATIVE WITH CARE. NO AGITATION AT THIS TIME.
== END 2021-06-13 15:30 | DRG 885 ==
LOC: ER 02:15 → GPS 05:10
PROVIDERS: ADMIT Psychiatry & Neurology Psychosomatic Medicine; ATTEND Student in an Organized Health Care Education/Training Program
DX: F25.0 Schizoaffective disorder, bipolar type (principal); E11.65 Type 2 diabetes mellitus with hyperglycemia; N39.0 Urinary tract infection, site not specified; E44.0 Moderate protein-calorie malnutrition; E83.42 Hypomagnesemia; J44.9 Chronic obstructive pulmonary disease, unspecified; G40.909 Epilepsy, unspecified, not intractable, without status epilepticus; E11.42 Type 2 diabetes mellitus with diabetic polyneuropathy; F03.90 Unspecified dementia, unspecified severity, without behavioral disturbance, psychotic disturbance, mood disturbance, and anxiety; F41.9 Anxiety disorder, unspecified; I10 Essential (primary) hypertension; Z91.14 Patient's other noncompliance with medication regimen; Z91.11 Patient's noncompliance with dietary regimen; F29 Unspecified psychosis not due to a substance or known physiological condition; Z20.822 Contact with and (suspected) exposure to COVID-19; Z79.84 Long term (current) use of oral hypoglycemic drugs; Z86.19 Personal history of other infectious and parasitic diseases; B96.89 Other specified bacterial agents as the cause of diseases classified elsewhere
CPT/HCPCS: 36415; 83735; 84100; 84443; 85025; 87086; 93005; 97161; J1815; J2060; J2358; J2426; Q0162

== ENCOUNTER 2021-11-17 22:27 | Inpatient (IN) | payer MEDICARE, OTHER ==
[~2021-11-17] VITALS: Ht 165.1 cm; Wt 59.0 kg
[~2021-11-17 22:27] MED LIST: ACET-2154 PO; ALBU18HF2 IH; ASPI81TA31 PO; BISA10SU61 RC; DOCU-141 PO; HYDR25TA4 PO; MAGN400O6 PO; METF-442 PO; NA P133E RC; PANT40TA2 PO; VALP250S22 PO
[2021-11-17] MEDS ORDERED: METF-442 PO (22:51)
[2021-11-17] MEDS ORDERED: VALP250S22 PO (22:51)
[2021-11-17] MEDS ORDERED: LEVE500T9 PO (22:51)
[2021-11-17] MEDS ORDERED: ONDA4TAB11 PO (22:51)
[2021-11-17] MEDS ORDERED: ALBU18HF2 IH (22:51)
[2021-11-17] MEDS ORDERED: GLIP10TA11 PO (22:51)
[2021-11-17] MEDS ORDERED: LORA0.5T48 PO (22:51)
[2021-11-17] MEDS ORDERED: RISP3TAB5 PO (22:51)
[2021-11-17] MEDS ORDERED: MULT-213 PO (22:51)
[2021-11-17] MEDS ORDERED: DOCU-141 PO (22:51)
--- NOTE | 2021-11-17 22:54 | NUR ---
Julito MONSALVE AT BEDSIDE, MSE IN PROGRESS.
[2021-11-17] MEDS ORDERED: IV NORMAL SALINE 500 ML BAG IV ONE (23:00)
[2021-11-17] MEDS ORDERED: OLANZAPINE 10 MG VIAL IM ONE ×2 (23:00)
[2021-11-17 23:34] LABS: HEMATOCRIT 43.8 % (31.2-41.9); MEAN CORPUSCULAR HEMOGLOBIN 30.5 uug (24.7-32.8); MEAN CORPUSCULAR VOLUME 87.2 fL (75.5-95.3); PLATELET COUNT (AUTO) 236 K/uL (179-408)
--- NOTE | 2021-11-17 23:50 | NUR ---
XRAY AT BEDSIDE.
[2021-11-17 23:54] LABS: CARBON DIOXIDE 26 mmol/L (21-32); CHLORIDE 102 mmol/L (98-107); CREATININE 0.6 mg/dL (0.6-1.3); GLUCOSE 121 mg/dL (74-106); POTASSIUM 3.6 mmol/L (3.5-5.1); UREA NITROGEN, BLOOD 13 mg/dL (7-18)
[2021-11-18] LABS: ALANINE AMINOTRANSFERASE 19 U/L (14-59); ALKALINE PHOSPHATASE 88 U/L (50-136); ASPARTATE AMINOTRANSFERASE 8 U/L (15-37); BILIRUBIN,DIRECT 0.1 mg/dL (0.0-0.2); BILIRUBIN,TOTAL 0.4 mg/dL (0.2-1.0); TOTAL PROTEIN, SERUM 7.5 g/dL (6.4-8.2)
[2021-11-18 00:05] LABS: ACETAMINOPHEN < 2.0 ug/mL (10-30)
[2021-11-18 00:07] LABS: ETHANOL < 3 MG/DL (0-0)
[2021-11-18] MEDS ORDERED: IV NORMAL SALINE 1000 ML BAG IV ONE (00:15)
[2021-11-18 00:29] LABS: *BILIRUBIN,URIN NEGATIVE (NEGATIVE); *BLOOD, URINE NEGATIVE (NEGATIVE); *COLOR,URINE YELLOW (YELLOW); *KETONES,URINE NEGATIVE (NEGATIVE); *UROBILINOGEN,URINE 0.2 E.U./dl (NORMAL); LEUKOCYTE ESTERASE ,URINE 1+ (NEGATIVE); NITRITE, URINE NEGATIVE (NEGATIVE); PH,URINE 6.5 (5.0-8.0); UGLUCOSE NEGATIVE (NEGATIVE)
--- NOTE | 2021-11-18 00:46 | NUR ---
GAVE REPORT TO [facility]HU NURSE, OCTOBER.
[2021-11-18 00:47] LABS: *CLARITY,URINE HAZY (CLEAR); BACTERIA,URINE FEW /HPF (NONE SEEN); RBC,URINE NONE SEEN /HPF (0-3)
[2021-11-18 00:48] LABS: SQUAMOUS EPITHELIAL CELL,UR MODERATE /HPF (NONE SEEN)
[2021-11-18 00:51] LABS: *AMPHETAMINE, URINE NEGATIVE (NEGATIVE); *CANNABINOID, URINE NEGATIVE (NEGATIVE); *COCCAINE, URINE NEGATIVE (NEGATIVE); *OPIATE, URINE NEGATIVE (NEGATIVE); *PHENCYCLIDINE SCREEN,URINE NEGATIVE (NEGATIVE)
--- NOTE | 2021-11-18 01:38 | NUR ---
Pt. admitted to [facility] , under care of Dr. Barrios and Dr. Crowder Belongs List completed
[2021-11-18 01:42] VITALS: BP 135/66
[2021-11-18 02:13] LABS: VALPROIC ACID < 3 ug/mL (50-100)
[2021-11-18] MEDS ORDERED: ACETAMINOPHEN 325 MG TABLET PO PRN (02:30)
[2021-11-18] MEDS ORDERED: MAG HYDROX/AL HYDROX/SIMETH 30 ML LIQUID UDC PO PRN (02:30)
[2021-11-18] MEDS ORDERED: LORAZEPAM 1 MG TABLET PO PRN (02:30)
[2021-11-18] MEDS ORDERED: MAGNESIUM HYDROXIDE 30 ML LIQUID UDC PO PRN (02:30)
[2021-11-18] MEDS ORDERED: BLOOD SUGAR DIAGNOSTIC 1 EACH STRIP VI ONE (02:30)
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
--- NOTE | 2021-11-18 03:35 | NUR ---
GPS NOTES: Xray result received, Normal. Called [facility] and [facility] ([phone]), to obtain information about patients COVID-19 vaccination record, Spoke to staff and informed me to call back in the morning to follow up as their records are kept in the office they don't have access at this time.
--- NOTE | 2021-11-18 06:19 | NUR ---
Remain calm and cooperative with care. slept 3 hrs through the night. continue plan of care.
[2021-11-18] MEDS ORDERED: BISACODYL 10 MG SUPP.RECT RC PRN (09:15)
[2021-11-18] MEDS ORDERED: FLEET ENEMA 133 ML BOTTLE RC PRN (09:15)
[2021-11-18] MEDS ORDERED: ALBUTEROL SULFATE 2.5 MG/3 ML NEBU NEB PRN (09:15)
[2021-11-18] MEDS: ASPIRIN 81 MG TAB.CHEW PO SCH (10:00)
[2021-11-18] MEDS: levETIRAcetam 500 MG TABLET PO SCH ×2 (10:00→17:00)
[2021-11-18] MEDS: risperiDONE 1 MG TABLET PO SCH ×3 (10:58→17:00)
[2021-11-18] MEDS: VALPROIC ACID 250 MG/5 ML LIQUID UDC PO SCH ×2 (10:58→17:00)
--- NOTE | 2021-11-18 10:58 | NUR ---
GPS: PT WAS WRITING, WHEN MANAGER ADVERTISING ASKED PT TO TAKE HER MEDS AND PT BECAME ANXIOUS, COVERS HER EARS AND WHEELED HERSELF OUT OF HER ROOM AND YELLING STATING "I DID NOT CAME HERE FOR MEDS, I CAME HERE FOR MY ITINERARY" PT LOOKS CONFUSED, EASILY GETS AGITATED. PT REFUSED ALL MEDS GIVEN.
--- NOTE | 2021-11-18 12:18 | NUR ---
PRISCILLA Initial Discharge Note: Pt currently resides at [place] [phone] ([phone]). PRISCILLA contacted Lesia from [facility] to discuss pt's ability to return upon discharge. Lesia will confirm with PRISCILLA. PRISCILLA will continue to work with pt and MD to ensure a safe and proper discharge plan.
--- NOTE | 2021-11-18 12:58 | NUR ---
GPS: COVID VACCINE RECORD PER [facility] MEDICAL RECORD, ESTEFANY ANDRES, PT REFUSED COVID VACCINE 3X OM 06/24/20.
--- NOTE | 2021-11-18 13:17 | NUR ---
Firearms Report: Signal Operator Linguist completed and submitted a DOJ firearms report for 5150 a danger to herself, a danger to others and grave disability certifications. A copy of report has been placed in patient chart.
[2021-11-18] MEDS: CEphaleXIN 500 MG CAPSULE PO SCH ×2 (14:00→21:04)
--- NOTE | 2021-11-18 14:24 | NUR ---
GPS: PT REFUSED THE 1300 MEDS DOSAGE, STATING " I DON'T NEED THE MEDICINE". EXPLAINED RISK AND BENEFITS.
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
[2021-11-18] MEDS ORDERED: LORAZEPAM 2 MG/1 ML VIAL IV ONE (15:45)
--- NOTE | 2021-11-18 15:47 | NUR ---
GPS: PT IN HER ROOM. ADMINISTERED ATIVAN 1MG IM ON RIGHT UPPER BUTTOCK. TOLERATED WELL BY PT. WILL MONITOR FOR ANY AR.
[2021-11-18] MEDS: METFORMIN HCL 500 MG TABLET PO SCH (18:00)
[2021-11-18] MEDS: glipiZIDE 10 MG TABLET PO SCH (18:00)
--- NOTE | 2021-11-18 18:46 | NUR ---
GPS: PT OBSERVED WHEELING ALONG THE HALLWAY, STAYING IN FRONT OF NURSES STATION, WANDERING GOING INTO OTHER PT ROOM. PT RE-ORIENTED TO HER ROOM. WITH EPISODE OF EASILY GETS IRRITATED. DENIES ANY PAIN OR DISCOMFORT. PT NOTED CONFUSED AND FORGETFUL. REFUSED THE 1700 MEDS OFFERED.
[2021-11-19] MEDS: CEphaleXIN 500 MG CAPSULE PO SCH ×3 (06:00→21:08)
[2021-11-19] MEDS: PANTOPRAZOLE SODIUM 40 MG TABLET.DR PO SCH (06:30)
--- NOTE | 2021-11-19 06:31 | NUR ---
GPS: Pt.slept 8 hrs.last night. Refused scheduled med.this a.m. despite numerous attempts by staff. Risks vs benefits explained x3 although unsuccessful . Refused to listen to staff when being provided health teachings. Poor insight to present situation. No aggressive behavior noted. Will continue to monitor.
[2021-11-19] MEDS: METFORMIN HCL 500 MG TABLET PO SCH ×2 (08:00→17:10)
[2021-11-19] MEDS: glipiZIDE 10 MG TABLET PO SCH ×2 (08:00→17:10)
[2021-11-19] MEDS: DOCUSATE SODIUM 100 MG CAPSULE PO SCH (09:00)
[2021-11-19] MEDS: VALPROIC ACID 250 MG/5 ML LIQUID UDC PO SCH ×2 (09:00→17:00)
[2021-11-19] MEDS: MULTIVIT, IRON, MIN NO. 8, FA TABLET PO SCH (09:00)
[2021-11-19] MEDS: HYDROCHLOROTHIAZIDE 25 MG TABLET PO SCH (09:00)
[2021-11-19] MEDS: levETIRAcetam 500 MG TABLET PO SCH ×2 (09:00→17:00)
[2021-11-19] MEDS: risperiDONE 1 MG TABLET PO SCH ×3 (09:00→17:00)
[2021-11-19] MEDS: ASPIRIN 81 MG TAB.CHEW PO SCH (09:00)
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
--- NOTE | 2021-11-19 17:11 | NUR ---
GPS: PT REFUSED ALL PM MEDS OFFERED. EXPLAINED RISK AND BENEFITS AND IT WAS UNSUCCESSFUL. PT NOTED TAKING OFF ALL SOILED LINENS AT THE HAMPER. WITH EPISODE OF AGITATION AND CLOSING DOORS OF THE ACTIVITY ROOM PT DOES NOT LIKE THE SOUND OF THE TV.
--- NOTE | 2021-11-19 22:49 | NUR ---
GPS: Pt.remains awake at this time. Delusional,easily agitated when approached and arguing with her roommate at times. Has poor impulse control. Demanding behavior. Sits on the floor by her door to get staff's attention. Needs frequent re-direction and limit setting from staff. Continues to refuse prn meds.when offered. Will continue to monitor behavior for further escalation.
[2021-11-20] MEDS: CEphaleXIN 500 MG CAPSULE PO SCH ×3 (06:00→22:00)
[2021-11-20] MEDS: PANTOPRAZOLE SODIUM 40 MG TABLET.DR PO SCH (06:12)
[2021-11-20] MEDS: METFORMIN HCL 500 MG TABLET PO SCH ×2 (08:00→17:59)
[2021-11-20] MEDS: glipiZIDE 10 MG TABLET PO SCH ×2 (08:00→17:59)
[2021-11-20] MEDS: VALPROIC ACID 250 MG/5 ML LIQUID UDC PO SCH ×2 (09:00→16:32)
[2021-11-20] MEDS: HYDROCHLOROTHIAZIDE 25 MG TABLET PO SCH (09:00)
[2021-11-20] MEDS: ASPIRIN 81 MG TAB.CHEW PO SCH (09:00)
[2021-11-20] MEDS: risperiDONE 1 MG TABLET PO SCH ×3 (09:00→16:33)
[2021-11-20] MEDS: levETIRAcetam 500 MG TABLET PO SCH ×2 (09:00→16:33)
[2021-11-20] MEDS: MULTIVIT, IRON, MIN NO. 8, FA TABLET PO SCH (09:00)
[2021-11-20] MEDS: DOCUSATE SODIUM 100 MG CAPSULE PO SCH (09:00)
--- NOTE | 2021-11-20 12:48 | NUR ---
GPS: PT STILL CONTINUES TO REFUSE MEDICATIONS GIVEN AT 0900. PSYCHIATRIST FILED 14DAY HOLD AND RIESE PETITION. FAXED TO SUPERIOR COURT AND PER COURT PERSONNEL JUDI, THEY RECEIVED THE DOCUMENTS FAXED. PT WITH EPISODE OF YELLING, SCREAMING AND BEING AGITATED AFTER VISITORS FROM HER ROOM MATE CAME. RE-DIRECTED PT AND SHE REMAINED QUIET. DENIES PAIN OR DISCOMFORT.
--- NOTE | 2021-11-21 05:12 | NUR ---
Gps notes: received patient in bed sleeping, attempt to greet the patient, while turning on the light, patient screams "who are you?turn off the light". Introduced myself to be her nurse, patient unable to comprehend d/t delusion. Patient states to have an important person to be meeting with and not some nurse. Continue to cover herself with a blanket and sleeps. Patient refused her antibiotic that is due. Explained risk and benefits, still refused and yells at the freelance copywriter to "go away". Potential for aggressive behavior. Patient throwing pillows on the floor, and going form one bed to another. Non directable. Poor impulse control. Unable to comply with plan of care. closely monitoring observed.
[2021-11-21] MEDS: CEphaleXIN 500 MG CAPSULE PO SCH ×3 (05:24→21:25)
[2021-11-21] MEDS: PANTOPRAZOLE SODIUM 40 MG TABLET.DR PO SCH (06:14)
[2021-11-21] MEDS: glipiZIDE 10 MG TABLET PO SCH ×2 (08:00→18:00)
[2021-11-21] MEDS: METFORMIN HCL 500 MG TABLET PO SCH ×2 (08:00→18:00)
[2021-11-21] MEDS: HYDROCHLOROTHIAZIDE 25 MG TABLET PO SCH (09:00)
[2021-11-21] MEDS: risperiDONE 1 MG TABLET PO SCH ×3 (09:00→17:00)
[2021-11-21] MEDS: levETIRAcetam 500 MG TABLET PO SCH ×2 (09:00→17:00)
[2021-11-21] MEDS: VALPROIC ACID 250 MG/5 ML LIQUID UDC PO SCH ×2 (09:00→17:00)
[2021-11-21] MEDS: ASPIRIN 81 MG TAB.CHEW PO SCH (09:00)
[2021-11-21] MEDS: DOCUSATE SODIUM 100 MG CAPSULE PO SCH (09:00)
[2021-11-21] MEDS: MULTIVIT, IRON, MIN NO. 8, FA TABLET PO SCH (09:00)
[2021-11-21] MEDS: OLANZAPINE 10 MG VIAL IM PRN ×2 (13:55→17:21)
--- NOTE | 2021-11-21 13:59 | NUR ---
Patient is riesed and was given Zyprexa 5 mg/ml IM as back up for Risperdal refusal. Security was called to help with medication administration, no force was needed or applied. Fall and safety precautions implemented.
--- NOTE | 2021-11-21 15:25 | NUR ---
Received patient sleeping in his room. A/O X 1 to person. Pt. is irritable, combative, striking to others, throwing food to anyone who talks to her. Pt. states "Leave me alone, get out of my face". Pt. is riesed for not being compliant with medications. Fall and safety precautions implemented.
--- NOTE | 2021-11-21 16:22 | NUR ---
SW Discharge Note Update: [place] [address] ([phone]). Pt will return to [facility] upon discharge.
--- NOTE | 2021-11-21 17:23 | NUR ---
Pt. is reised and given Zyprexa 5mg/ml IM as back up for Psych medications.
[2021-11-22] MEDS: CEphaleXIN 500 MG CAPSULE PO SCH (06:00)
[2021-11-22] MEDS: PANTOPRAZOLE SODIUM 40 MG TABLET.DR PO SCH (06:01)
--- NOTE | 2021-11-22 06:02 | NUR ---
GPS: Pt.slept 8 hrs.last night. Continues to refuse due meds.this a.m. despite explanation of risks vs benefits x3. Paranoid,delusional and easily irritable when approached. Safe environment provided. Will continue to monitor.
[2021-11-22] MEDS: METFORMIN HCL 500 MG TABLET PO SCH ×2 (08:00→17:31)
[2021-11-22] MEDS: glipiZIDE 10 MG TABLET PO SCH ×2 (08:00→17:31)
[2021-11-22] MEDS: VALPROIC ACID 250 MG/5 ML LIQUID UDC PO SCH ×2 (08:53→17:00)
[2021-11-22] MEDS: levETIRAcetam 500 MG TABLET PO SCH ×2 (08:53→17:00)
[2021-11-22] MEDS: ASPIRIN 81 MG TAB.CHEW PO SCH (08:53)
[2021-11-22] MEDS: HYDROCHLOROTHIAZIDE 25 MG TABLET PO SCH (08:53)
[2021-11-22] MEDS: DOCUSATE SODIUM 100 MG CAPSULE PO SCH (08:53)
[2021-11-22] MEDS: MULTIVIT, IRON, MIN NO. 8, FA TABLET PO SCH (08:54)
[2021-11-22] MEDS: risperiDONE 1 MG TABLET PO SCH ×3 (08:54→17:00)
[2021-11-22] MEDS: OLANZAPINE 10 MG VIAL IM PRN ×3 (09:10→18:02)
--- NOTE | 2021-11-22 09:10 | NUR ---
Pt. is reised and refuses PO medications, Zyprexa 5mg/ml IM given as back up. Fall and safety precautions implemented.
--- NOTE | 2021-11-22 13:47 | NUR ---
Pt. is reised and refuses PO medications, Zyprexa 5mg/ml IM given as back up, will be monitored. Fall and safety precautions implemented.
--- NOTE | 2021-11-22 15:39 | NUR ---
Received patient sleeping in his room. A/O X 2 to person, place. Pt. is uncooperative with care, refuses all PO medications, irritable, agitated, combative, isolative, delusional "I did not allow you to come here. I'm the doctor and you need to listen to me." "Stop poisoning me witch". Reassurance was given. Fall and safety precautions implemented.
--- NOTE | 2021-11-22 18:28 | NUR ---
Pt. is reised and refuses PO medications, Zyprexa 5mg/ml IM given as back up, will be monitored. Fall and safety precautions implemented
--- NOTE | 2021-11-22 21:00 | NUR ---
received patient in the hallway sitting in a chair near the nursing station. She is noted A/O x 1. she is noted verbally abusive, hyperverbal, hostile, uncooperative and delusional. patient is having grandiose delusional thinking. she stated, "You are not my nurse, I am the berry in here, don't talk to me". she has impaired insight and judgment as to the reason for her admission to [facility]. Patient continue refusing medication and V/S. Pt has been informed of the importance of compliant with medication regiment and V/S; however, ineffective. Patient is reise. She was given PO fluids and snacks. She is reassured for her safety. safety and fall precaution are in place. will continue to monitor.
--- NOTE | 2021-11-23 06:49 | NUR ---
Patient slept for approx 6 hrs through the night. she continue resistance to care, argumentative and grandiose delusions. will continue to monitor.
[2021-11-23] MEDS: PANTOPRAZOLE SODIUM 40 MG TABLET.DR PO SCH (07:00)
[2021-11-23] MEDS: glipiZIDE 10 MG TABLET PO SCH ×2 (08:00→17:28)
[2021-11-23] MEDS: METFORMIN HCL 500 MG TABLET PO SCH ×2 (08:00→17:28)
[2021-11-23] MEDS: ASPIRIN 81 MG TAB.CHEW PO SCH (08:33)
[2021-11-23] MEDS: HYDROCHLOROTHIAZIDE 25 MG TABLET PO SCH (08:33)
[2021-11-23] MEDS: VALPROIC ACID 250 MG/5 ML LIQUID UDC PO SCH ×2 (08:33→17:00)
[2021-11-23] MEDS: DOCUSATE SODIUM 100 MG CAPSULE PO SCH (08:33)
[2021-11-23] MEDS: MULTIVIT, IRON, MIN NO. 8, FA TABLET PO SCH (08:34)
[2021-11-23] MEDS: levETIRAcetam 500 MG TABLET PO SCH ×2 (08:34→17:00)
[2021-11-23] MEDS: risperiDONE 1 MG TABLET PO SCH ×3 (08:34→17:00)
[2021-11-23] MEDS: OLANZAPINE 10 MG VIAL IM PRN ×3 (09:35→18:25)
--- NOTE | 2021-11-23 09:37 | NUR ---
Pt. is reised and refuses PO medications, Zyprexa 5mg/ml IM given as back up, security was called due to combative behavior, but no force needed, will be monitored. Fall and safety precautions implemented
--- NOTE | 2021-11-23 13:44 | NUR ---
Pt. is reised and refuses PO medications, Zyprexa 5mg/ml IM given as back up, security was called due to combative and violent behavior, but no force was needed, will be monitored. Fall and safety precautions implemented
--- NOTE | 2021-11-23 15:27 | NUR ---
Received patient sleeping in his room. A/O X 2 to person, place. Pt. is delusional "Stop putting poison in my body" "Get out of my face, you're not allowed to be in my room" "I need to see doctor Sebastián. He is my real doctor" "You're too dependable on doctors orders. Shame on you!" Pt. is uncooperative, combative, argumentative. Pt. is still refusing PO medications and getting IM as back up, as ordered. Reality orientation provided. Fall and safety precautions implemented.
--- NOTE | 2021-11-23 18:25 | NUR ---
Pt. is reised and refuses PO medications, Zyprexa 5mg/ml IM given as back up, security was called due to combative and violent behavior, no force applied, will be monitored. Fall and safety precautions implemented.
--- NOTE | 2021-11-23 21:00 | NUR ---
Received patient in her room sitting in a wheel chair. She is noted A/O x 1. she continue grossly psychotic. She stares blankly into space. She is noted with poor grooming. Upon approached she is verbally abusive. her mood is angry and irritable, affect is hostile. Her speech is disorganized and grandiose delusional thinking. Patient remains in her room most of the time. she is isolative. She continue refusing V/S and PO PRN medications. Patient is reassured for her safety. Safety and fall precautions are in place. will continue to monitor.
[2021-11-24] MEDS: PANTOPRAZOLE SODIUM 40 MG TABLET.DR PO SCH (07:00)
--- NOTE | 2021-11-24 07:00 | NUR ---
Patient slept for approx 5.30 hrs through the night. She continue isolative and withdrawn. she is easily irritable, belligerent and non-compliant with medication regiment and plan of care. will continue to monitor,
[2021-11-24] MEDS: glipiZIDE 10 MG TABLET PO SCH ×2 (08:00→17:31)
[2021-11-24] MEDS: METFORMIN HCL 500 MG TABLET PO SCH ×2 (08:00→17:30)
[2021-11-24] MEDS ORDERED: HALOPERIDOL LACTATE 5 MG/1 ML VIAL IM PRN (08:15)
[2021-11-24] MEDS: ASPIRIN 81 MG TAB.CHEW PO SCH (08:25)
[2021-11-24] MEDS: DOCUSATE SODIUM 100 MG CAPSULE PO SCH (08:26)
[2021-11-24] MEDS: levETIRAcetam 500 MG TABLET PO SCH ×2 (08:26→17:00)
[2021-11-24] MEDS: HYDROCHLOROTHIAZIDE 25 MG TABLET PO SCH (08:26)
[2021-11-24] MEDS: VALPROIC ACID 250 MG/5 ML LIQUID UDC PO SCH ×2 (08:26→17:00)
[2021-11-24] MEDS: risperiDONE 1 MG TABLET PO SCH ×3 (08:27→17:00)
[2021-11-24] MEDS: MULTIVIT, IRON, MIN NO. 8, FA TABLET PO SCH (08:27)
[2021-11-24] MEDS: OLANZAPINE 10 MG VIAL IM PRN ×3 (09:55→17:31)
--- NOTE | 2021-11-24 15:28 | NUR ---
patient continue refused all po medication, Zyprexa im given as ordered,. patient remains isolative labile mood, refused all nursing care and vital sign taken. refused group activity, will continue close monitoring.
--- NOTE | 2021-11-24 21:59 | NUR ---
Patient received up in her wheel chair going in and out of room and the activities room. Patient is noted A/O x 1, she continues to have grossly psychotic. She stares blankly into space. She is noted with poor grooming. Upon approached she is labile, angry and irritable. Her speech is disorganized. Patient continues to refuse vital signs and medications. _a Patient is reassured for her safety. Safety and fall precautions are in place. will continue to monitor.
[2021-11-25] MEDS: METFORMIN HCL 500 MG TABLET PO SCH ×2 (08:00→16:22)
[2021-11-25] MEDS: glipiZIDE 10 MG TABLET PO SCH ×2 (08:00→16:23)
[2021-11-25] MEDS: ASPIRIN 81 MG TAB.CHEW PO SCH (08:50)
[2021-11-25] MEDS: DOCUSATE SODIUM 100 MG CAPSULE PO SCH (08:50)
[2021-11-25] MEDS: HYDROCHLOROTHIAZIDE 25 MG TABLET PO SCH (08:51)
[2021-11-25] MEDS: MULTIVIT, IRON, MIN NO. 8, FA TABLET PO SCH (08:51)
[2021-11-25] MEDS: levETIRAcetam 500 MG TABLET PO SCH ×2 (08:51→16:22)
[2021-11-25] MEDS: DIVALPROEX SPRINKLE 125 MG CAP.SPRINK PO SCH ×2 (08:51→21:00)
[2021-11-25] MEDS: OLANZAPINE 10 MG VIAL IM PRN ×2 (08:52→16:23)
[2021-11-25] MEDS: OLANZAPINE ZYDIS 5 MG TAB.RAPDIS PO SCH ×3 (09:00→21:00)
[2021-11-25] MEDS ORDERED: OLANZAPINE ZYDIS 5 MG TAB.RAPDIS PO SCH (09:00)
[2021-11-25] MEDS ORDERED: chlorproMAZINE 50 MG/2 ML AMPUL IM PRN (17:00)
--- NOTE | 2021-11-25 20:41 | NUR ---
Patient received up in her wheel chair going in and out of room and the activities room. Patient is noted A/O x 1, she continues to have grossly psychotic. She stares blankly into space. She is noted with poor grooming. Upon approached she is labile, angry and irritable. Her speech is disorganized. Patient continues to refuse vital signs and medications. Patient is reassured for her safety. Safety and fall precautions are in place. Bed in lowest position, bed locked, and bed alarm on while in bed. Patient is Riesed and continues to refuse PO medication (Zyprexa), Thorazine 25 (1ml) IM given as ordered.
[2021-11-26] MEDS: glipiZIDE 10 MG TABLET PO SCH ×2 (08:00→16:48)
[2021-11-26] MEDS: METFORMIN HCL 500 MG TABLET PO SCH ×2 (08:00→16:47)
[2021-11-26] MEDS: ASPIRIN 81 MG TAB.CHEW PO SCH (08:29)
[2021-11-26] MEDS: levETIRAcetam 500 MG TABLET PO SCH ×2 (08:30→16:47)
[2021-11-26] MEDS: DOCUSATE SODIUM 100 MG CAPSULE PO SCH (08:30)
[2021-11-26] MEDS: MULTIVIT, IRON, MIN NO. 8, FA TABLET PO SCH (08:30)
[2021-11-26] MEDS: HYDROCHLOROTHIAZIDE 25 MG TABLET PO SCH (08:30)
[2021-11-26] MEDS: OLANZAPINE ZYDIS 5 MG TAB.RAPDIS PO SCH ×3 (09:00→20:14)
[2021-11-26] MEDS: DIVALPROEX SPRINKLE 125 MG CAP.SPRINK PO SCH ×2 (09:00→20:14)
[2021-11-26] MEDS: chlorproMAZINE 50 MG/2 ML AMPUL IM PRN ×3 (10:06→20:23)
--- NOTE | 2021-11-26 17:14 | NUR ---
Received patient continue refused all po medication, Thorazine im given as ordered,. patient remains isolative labile mood, refused all nursing care and vital sign taken. refused group activity, able to use wheel chair to wheel around ,will continue close monitoring.
--- NOTE | 2021-11-27 04:24 | NUR ---
Received patient in her room, sitting in her wheelchair. A&ox1, unkempt looking. Greeted patient but patient ignores the grant writer. Patient is offered her oral medications, but refused d/t delusion. Patient states " I can't have medication, I am ". Reinforce reality to patient. Patient shows aggressive behavior and yelling at staff arguing about her delusions. Set limits to patients behavior. Thorazine given Im as per order. Patient was combative and cursing at staff. Safety environment set. Patient well during shift. Closely monitoring observed.
[2021-11-27] MEDS: METFORMIN HCL 500 MG TABLET PO SCH ×2 (08:00→17:21)
[2021-11-27] MEDS: glipiZIDE 10 MG TABLET PO SCH ×2 (08:00→17:22)
[2021-11-27] MEDS: ASPIRIN 81 MG TAB.CHEW PO SCH (09:00)
[2021-11-27] MEDS: DIVALPROEX SPRINKLE 125 MG CAP.SPRINK PO SCH ×2 (09:00→21:00)
[2021-11-27] MEDS: DOCUSATE SODIUM 100 MG CAPSULE PO SCH (09:00)
[2021-11-27] MEDS: OLANZAPINE ZYDIS 5 MG TAB.RAPDIS PO SCH ×3 (09:00→21:00)
[2021-11-27] MEDS: levETIRAcetam 500 MG TABLET PO SCH ×2 (09:00→16:56)
[2021-11-27] MEDS: MULTIVIT, IRON, MIN NO. 8, FA TABLET PO SCH (09:00)
[2021-11-27] MEDS: HYDROCHLOROTHIAZIDE 25 MG TABLET PO SCH (09:00)
[2021-11-27] MEDS: chlorproMAZINE 50 MG/2 ML AMPUL IM PRN ×3 (09:40→21:55)
--- NOTE | 2021-11-27 16:13 | NUR ---
SW Discharge Note Update: [place] [address] ([phone]). Per Lesia, pt is welcome back to [facility] upon discharge.
--- NOTE | 2021-11-27 21:00 | NUR ---
RECEIVED PATIENT IN HER ROOM IN BED. SHE IS NOTED SLEEPING BUT EASILY AROUSABLE. PATIENT IS A/O X1. SHE IS IRRITABLE, UNCOOPERATIVE WITH MEDICATION REGIMENT DIET AND CARE. SHE INTIMIDATES STAFF, AND SHE IS VERBALLY ABUSE WHEN SPOKEN TO HER. SHE REMAINS IN HER ROOM MOST OF THE TIME, SHE IS ISOLATIVE AND WITHDRAWN. SHE IS A POOR HISTORIAN. SHE CONTINUE REFUSING V/S. IMPAIRED INSIGHT AND JUDGMENT IS NOTED TO THE REASON FOR HER ADMISSION TO [facility]. PATIENT WAS GIVEN PO FLUIDS AND SNACKS. SHE IS REASSURED FOR HER SAFETY. SAFETY AND FALL PRECAUTION ARE IN PLACE. PATIENT CONTINUE USING A WHEELCHAIR. WILL CONTINUE TO MONITOR.
--- NOTE | 2021-11-27 21:30 | NUR ---
Received patient in his room. He is noted sleeping but easily arousable. noted A/o x 2. Patient is noted guarded, and irritable upon apporached, but he is looking forward to go back to his SNF. He stated, "At my place, i have a TV next to my bed. i could watch tv at night, not in this place". Patient was reassured and redirected. Initially he refused his QHS medications but after redirections and reassurance, He was able to take all his medications. patient denied SI/HI/VH/AH. he is able to CFS, He was given PO fluids and snacks. V/S are stable. patient is reassured for his safety. safety and fall precaution are in place. will continue to monitor.
--- NOTE | 2021-11-27 22:00 | NUR ---
PATIENT REFUSED ZYPREXA QHS. MULTIPLE REDIRECTION WERE GIVEN. SHE WAS INFORMED OF THE IMPORTANCE TO COMPLY WITH HER MEDICATION REGIMENT TO IMPROVED HER SYMPTOMS. HOWEVER, INEFFECTIVE. SHE REFUSED ZYPREXA. BECAUSE THE PATIENT IS REISE SHE WAS GIVEN THORAZINE 50MG IM FOR REFUSAL OF ZYPREXA. WILL CONTINUE TO MONITOR.
[2021-11-28] MEDS: METFORMIN HCL 500 MG TABLET PO SCH ×2 (08:00→18:00)
[2021-11-28] MEDS: glipiZIDE 10 MG TABLET PO SCH ×2 (08:00→18:04)
[2021-11-28] MEDS: HYDROCHLOROTHIAZIDE 25 MG TABLET PO SCH (09:00)
[2021-11-28] MEDS: levETIRAcetam 500 MG TABLET PO SCH ×2 (09:00→18:04)
[2021-11-28] MEDS: MULTIVIT, IRON, MIN NO. 8, FA TABLET PO SCH (09:00)
[2021-11-28] MEDS: ASPIRIN 81 MG TAB.CHEW PO SCH (09:00)
[2021-11-28] MEDS: DOCUSATE SODIUM 100 MG CAPSULE PO SCH (09:00)
[2021-11-28] MEDS: OLANZAPINE ZYDIS 5 MG TAB.RAPDIS PO SCH ×3 (09:00→20:11)
[2021-11-28] MEDS: DIVALPROEX SPRINKLE 125 MG CAP.SPRINK PO SCH ×2 (09:10→20:11)
[2021-11-28] MEDS: chlorproMAZINE 50 MG/2 ML AMPUL IM PRN (10:05)
--- NOTE | 2021-11-28 15:30 | NUR ---
Gps/Bright Cutter- Per Lift Truck OperatorYoko Arana , she claimed patient pulled fire alarm, and was noted wheeling self out from the back door . Patient was pulled back up to the unit, monitored safety.When asked patient why she did what she did, pt. refused to answer ,
--- NOTE | 2021-11-28 17:01 | NUR ---
Gps/Vascular Physician- Tends to close her door, discouraged from doing so, claimed its her room and she can close her door anytime, stated" i dont want anyone entering my place." Reoriented, reminded patient she's in the hospital .
--- NOTE | 2021-11-29 04:04 | NUR ---
GPS NOTES: Received patient in bed sleeping in another patients bed, approached patient in calm manner and remind her that she's in the wrong bed, patient is irate but she agrees to move w/no problem. Patient is unkempt looking, unable to care for self d/t to grandiosity of delusions. Patient is territorial and tends to be aggressive if staff attempt to organize her stuff. Refused to shower, educate importance of hygiene, unable to comprehend at this time and throwing word salads. Re-orient to reality, responding negatively. Patient able to wheel herself in and out of the room to the day room to ask for snacks. Observed to be with good appetite. Patient is compliant with PO medications at this time, however stating to the play writer " I am GOD, I am deity, I don't need these pills" then "Get out of here". Safety measures in place, closely monitoring observed at all times for any escalation of behavior. Patient observed to sleep well during shift.
[2021-11-29] MEDS: METFORMIN HCL 500 MG TABLET PO SCH ×2 (08:00→17:50)
[2021-11-29] MEDS: glipiZIDE 10 MG TABLET PO SCH ×2 (08:00→17:50)
[2021-11-29] MEDS: ASPIRIN 81 MG TAB.CHEW PO SCH (08:28)
[2021-11-29] MEDS: OLANZAPINE ZYDIS 5 MG TAB.RAPDIS PO SCH ×3 (08:28→20:18)
[2021-11-29] MEDS: DIVALPROEX SPRINKLE 125 MG CAP.SPRINK PO SCH ×2 (08:28→20:18)
[2021-11-29] MEDS: DOCUSATE SODIUM 100 MG CAPSULE PO SCH (08:29)
[2021-11-29] MEDS: levETIRAcetam 500 MG TABLET PO SCH ×2 (08:29→16:35)
[2021-11-29] MEDS: HYDROCHLOROTHIAZIDE 25 MG TABLET PO SCH (08:29)
[2021-11-29] MEDS: MULTIVIT, IRON, MIN NO. 8, FA TABLET PO SCH (08:29)
--- NOTE | 2021-11-29 14:05 | NUR ---
GPS: Nursing Notes: Destructive Behavior To Others: Patient is awake and responding to his name, poor impulse control, poor anger management, selectively compliant with her medications, loud and pressured speech, verbal abusive at times, violent outburst without provocation at times, argumentative with peers and staff, unable to formulate a viable plan for self care, continue to monitor for safety, continue with treatment plan.
--- NOTE | 2021-11-30 06:45 | NUR ---
GPS: Pt.slept for 6 hrs.last night. No aggressive behavior noted. Continues to refuse shower earlier when encouraged by staff. Poor insight to present situation. Will continue to encourage to take all meds.prescribed. Behavior monitoring continues.
[2021-11-30] MEDS: glipiZIDE 10 MG TABLET PO SCH ×2 (08:00→18:00)
[2021-11-30] MEDS: METFORMIN HCL 500 MG TABLET PO SCH ×2 (08:00→18:00)
[2021-11-30] MEDS: MULTIVIT, IRON, MIN NO. 8, FA TABLET PO SCH (08:53)
[2021-11-30] MEDS: ASPIRIN 81 MG TAB.CHEW PO SCH (08:53)
[2021-11-30] MEDS: HYDROCHLOROTHIAZIDE 25 MG TABLET PO SCH (08:53)
[2021-11-30] MEDS: DOCUSATE SODIUM 100 MG CAPSULE PO SCH (08:53)
[2021-11-30] MEDS: DIVALPROEX SPRINKLE 125 MG CAP.SPRINK PO SCH ×2 (08:58→20:15)
[2021-11-30] MEDS: OLANZAPINE ZYDIS 5 MG TAB.RAPDIS PO SCH ×3 (08:58→20:15)
[2021-11-30] MEDS: levETIRAcetam 500 MG TABLET PO SCH ×2 (08:58→16:30)
--- NOTE | 2021-11-30 10:24 | NUR ---
GPS: Nursing Notes: Destructive Behavior To Others: Patient is awake and responding to her name, trying to refuse her psych. medications, stated "The psychiatrist discontinue the medications.. I don't need to take them..", explained the Riese process to the patient, stated "Okay.. I take the pills.. I don't want an injection..", poor anger management, resistant with nursing care, refusing V/S, refusing to shower, unable to formulate a viable plan for self care, continue to monitor for safety, continue with treatment plan.
[2021-12-01] MEDS: glipiZIDE 10 MG TABLET PO SCH ×2 (08:00→17:24)
[2021-12-01] MEDS: METFORMIN HCL 500 MG TABLET PO SCH ×2 (08:00→17:24)
[2021-12-01] MEDS: DIVALPROEX SPRINKLE 125 MG CAP.SPRINK PO SCH ×3 (09:00→21:19)
[2021-12-01] MEDS: ASPIRIN 81 MG TAB.CHEW PO SCH (09:00)
[2021-12-01] MEDS ORDERED: OLANZAPINE ZYDIS 5 MG TAB.RAPDIS PO SCH (09:00)
[2021-12-01] MEDS: MULTIVIT, IRON, MIN NO. 8, FA TABLET PO SCH (09:00)
[2021-12-01] MEDS ORDERED: chlorproMAZINE 50 MG/2 ML AMPUL IM PRN ×2 (09:00)
[2021-12-01] MEDS: OLANZAPINE ZYDIS 5 MG TAB.RAPDIS PO SCH ×3 (09:00→21:19)
[2021-12-01] MEDS: DOCUSATE SODIUM 100 MG CAPSULE PO SCH (09:00)
[2021-12-01] MEDS: levETIRAcetam 500 MG TABLET PO SCH ×2 (09:00→17:24)
[2021-12-01] MEDS: HYDROCHLOROTHIAZIDE 25 MG TABLET PO SCH (09:00)
--- NOTE | 2021-12-01 11:32 | NUR ---
GPS: Nursing Notes: Non-Compliant With Medications: Patient is awake and responding to his name, paranoid, believes that she does need to take medications, believes that there is nothing wrong with her, refusing her psych. medications this AM, staff gave medication IM per Shelly and psychiatrist's order, unable to formulate a viable plan for self care, unkempt appearance, AWOL risk, continue to monitor for safety, continue with treatment plan.
[2021-12-01] MEDS ORDERED: PALIPERIDONE PALMITATE 234 MG/1.5 ML SYRINGE IM ONE (13:00)
[2021-12-01] MEDS: TEMAZEPAM 7.5 MG CAPSULE PO PRN ×2 (21:20→21:54)
[2021-12-02] MEDS: glipiZIDE 10 MG TABLET PO SCH ×2 (08:00→17:08)
[2021-12-02] MEDS: METFORMIN HCL 500 MG TABLET PO SCH ×2 (08:00→17:08)
[2021-12-02] MEDS: DOCUSATE SODIUM 100 MG CAPSULE PO SCH (08:05)
[2021-12-02] MEDS: ASPIRIN 81 MG TAB.CHEW PO SCH (08:05)
[2021-12-02] MEDS: MULTIVIT, IRON, MIN NO. 8, FA TABLET PO SCH (08:05)
[2021-12-02] MEDS: HYDROCHLOROTHIAZIDE 25 MG TABLET PO SCH (08:05)
[2021-12-02] MEDS: levETIRAcetam 500 MG TABLET PO SCH ×2 (09:26→16:40)
[2021-12-02] MEDS: OLANZAPINE ZYDIS 5 MG TAB.RAPDIS PO SCH ×2 (09:26→20:15)
[2021-12-02] MEDS: DIVALPROEX SPRINKLE 125 MG CAP.SPRINK PO SCH ×2 (09:26→20:16)
--- NOTE | 2021-12-02 14:34 | NUR ---
GPS: Nursing Notes: Destructive Behavior To Others: Patient is awake and responding to her name, impaired judgment, resistant with nursing care, uncooperative with nursing care, believes that there is nothing wrong with her, believes that she God, gets easily irritable when redirected, unable to formulate a viable plan for self care, stated "I am taking those pills because I don't want an injection...", "The psychiatrist discontinue my medication.. Check the orders....You are a fucken liar..", continue to monitor for safety, continue with treatment plan.
[2021-12-03] MEDS: METFORMIN HCL 500 MG TABLET PO SCH ×2 (08:00→17:43)
[2021-12-03] MEDS: glipiZIDE 10 MG TABLET PO SCH ×2 (08:00→17:43)
[2021-12-03] MEDS: levETIRAcetam 500 MG TABLET PO SCH ×2 (08:55→17:42)
[2021-12-03] MEDS: OLANZAPINE ZYDIS 5 MG TAB.RAPDIS PO SCH ×2 (08:55→20:17)
[2021-12-03] MEDS: DIVALPROEX SPRINKLE 125 MG CAP.SPRINK PO SCH ×2 (08:55→20:15)
[2021-12-03] MEDS: MULTIVIT, IRON, MIN NO. 8, FA TABLET PO SCH (09:00)
[2021-12-03] MEDS: HYDROCHLOROTHIAZIDE 25 MG TABLET PO SCH (09:00)
[2021-12-03] MEDS: DOCUSATE SODIUM 100 MG CAPSULE PO SCH (09:00)
[2021-12-03] MEDS: ASPIRIN 81 MG TAB.CHEW PO SCH (09:00)
--- NOTE | 2021-12-03 17:12 | NUR ---
GPS: PT WAS QUIET, ISOLATIVE, STAYING INSIDE THE ROOM DURING EARLY SHIFT. COMPLIANT WITH PSYCHIATRIC MEDICATIONS AND REFUSED TAKING OTHER MEDICAL MEDS. EXPLAINED THE RISK AND BENEFITS OF TAKING MEDS. WITH EASILY GETS IRRITABLE WHEN NEEDS ARE NOT FOLLOWED IMMEDIATELY. DENIES PAIN OR DISCOMFORT. ENCOURAGED PT TO ATTEND GROUP THERAPY BUT REFUSED.
--- NOTE | 2021-12-04 01:00 | NUR ---
Pt is now awake. Assisted with shower.
--- NOTE | 2021-12-04 06:19 | NUR ---
Received to care last night, isolative in her room, compliant with medications. Slept well all night, with several episodes of waking up. Declined PRN for insomnia. Continues to sleep. No distress noted.
[2021-12-04] MEDS: glipiZIDE 10 MG TABLET PO SCH (08:00)
[2021-12-04] MEDS: METFORMIN HCL 500 MG TABLET PO SCH (08:00)
[2021-12-04] MEDS: levETIRAcetam 500 MG TABLET PO SCH (08:44)
[2021-12-04] MEDS: DOCUSATE SODIUM 100 MG CAPSULE PO SCH (08:44)
[2021-12-04] MEDS: OLANZAPINE ZYDIS 5 MG TAB.RAPDIS PO SCH (08:44)
[2021-12-04] MEDS: HYDROCHLOROTHIAZIDE 25 MG TABLET PO SCH (08:44)
[2021-12-04] MEDS: DIVALPROEX SPRINKLE 125 MG CAP.SPRINK PO SCH (08:44)
[2021-12-04] MEDS: ASPIRIN 81 MG TAB.CHEW PO SCH (08:44)
[2021-12-04] MEDS: MULTIVIT, IRON, MIN NO. 8, FA TABLET PO SCH (08:45)
--- NOTE | 2021-12-04 10:00 | NUR ---
GPS: PT RECEIVED TODAY ON BED. DENIES PAIN OR DISCOMFORT. PT WILL BE DISCHARGE TO [facility] AT 1100. NO AGITATION NOTED AT THIS TIME. PT COMPLIANT WITH MEDS AND CARE. INDEPENDENT WITH EATING HER MEALS. ALERT/ORIENTED X2. CALLED [facility], ADMITTING NURSE AT THE FACILITY AND ENDORSE AND REPORT MADE. PSYCHIATRIST AND LEASE ADMINISTRATOR MADE AWARE.
--- NOTE | 2021-12-04 10:32 | NUR ---
PRISCILLA Discharge Note: Pt will be discharged to [facility] [address] [place] [address] ([phone]) via Ambulance transportation at 11AM. PRISCILLA spoke with admin coordinator, Lesia at the facility who states they are ready to accept the patient today in room 19B. Pt is aware and agreeable with discharge plans. Pt does not have any family contact or person to notify. Pt is alert and oriented x2(name and place), is unable to plan for self-care at this time; however, is willing to accept care at SNF. Pt denies any suicidal or homicidal ideation. Pt will follow-up at the facility with Psychiatrist, Dr. Jaramillo and Survey Workers Supervisor, Dr. Quintero. Pt presents with calm mood and congruent affect. PHARMACY: [facility] ([phone]) [address] [facility] [address].
--- NOTE | 2021-12-04 12:23 | NUR ---
GPS: PT DISCHARGED FROM THE FACILITY. PT COOPERATIVE WITH THE AMBULANCE TRANSPORTATION PERSONNEL. DENIES PAIN OR DISCOMFORT. NO VALUABLES DEPOSITED.
== END 2021-12-04 12:00 | DRG 885 ==
LOC: ER 22:33 → GPS 11-18 00:51
PROVIDERS: ADMIT Nurse Practitioner Psychiatric/Mental Health; ATTEND Internal Medicine
DX: F25.0 Schizoaffective disorder, bipolar type (principal); E11.65 Type 2 diabetes mellitus with hyperglycemia; N39.0 Urinary tract infection, site not specified; F33.1 Major depressive disorder, recurrent, moderate; J44.9 Chronic obstructive pulmonary disease, unspecified; F41.9 Anxiety disorder, unspecified; Z86.19 Personal history of other infectious and parasitic diseases; E78.5 Hyperlipidemia, unspecified; E87.6 Hypokalemia; G62.9 Polyneuropathy, unspecified; M19.90 Unspecified osteoarthritis, unspecified site; G40.909 Epilepsy, unspecified, not intractable, without status epilepticus; Z20.822 Contact with and (suspected) exposure to COVID-19; Z79.84 Long term (current) use of oral hypoglycemic drugs; Z91.19 Patient's noncompliance with other medical treatment and regimen; I10 Essential (primary) hypertension; G47.00 Insomnia, unspecified
CPT/HCPCS: 36415; 71045; 80164; 84443; 85025; 87086; 93005; 97161; A4663; A6209; G0480; J2060; J2358; J2426; J3230; J7040